=== PATIENT | male | born 1960 | race Caucasian/White ===

== ENCOUNTER 2021-07-02 10:52 | Emergency (ER) | payer OTHER, SELFPAY ==
--- NOTE | ~2021-07-02 | CT_ITS ---
EXAMINATION: CT ABDOMEN AND PELVIS WITHOUT CONTRAST CLINICAL INFORMATION: Left lower quadrant pain. No bowel movements for 4 days. COMPARISON: None TECHNIQUE: Multidetector volumetric imaging was performed from the superior aspect of the liver through the pubic symphysis. Sagittal and coronal reformatted images were obtained on the technologist's workstation. This CT examination was performed using dose optimization techniques as appropriate, variously including the following: *Automated exposure control *Adjustment of mA and/or kV according to patient size (this includes techniques or standardized protocols for targeted exams where dose is matched to indication/reason for exam; i.e. extremities or head) *Use of iterative reconstruction technique DLP: 467 mGy-cm FINDINGS: LUNG BASES: Lung bases are clear. The heart size is normal. LIVER, GALLBLADDER, AND BILIARY TREE: The liver is normal in size, shape, and attenuation. No focal hepatic lesion or biliary ductal dilatation is present. The gallbladder is unremarkable with no evidence of radiopaque gallstones, gallbladder wall thickening, or obvious pericholecystic inflammatory changes. PANCREAS: The head and the body the pancreas is homogeneous in echotexture. The tail of the pancreas is not visualized and likely hypoplastic. SPLEEN: Unremarkable. ADRENAL GLANDS: Unremarkable. KIDNEYS AND URETERS: The kidneys are normal in size, shape, and attenuation. There is 7 mm radiopaque calcification or calculi in the midpole cortex left kidney. No additional calcifications seen. There is no hydronephrosis. BLADDER: Unremarkable. GASTROINTESTINAL TRACT: There is scattered stool and diverticuli seen throughout the entire colon without distention. There is diffuse mural thickening involving sigmoid colon with pericolic fat stranding suggestive of diverticulitis. The small bowel loops are normal caliber. Appendix is not seen well. No free air or free fluid seen. ABDOMINAL WALL: No significant hernia is appreciated. LYMPH NODES: Normal. VASCULAR: Unremarkable. PELVIC VISCERA: There is no free fluid seen. OSSEOUS STRUCTURES: There are degenerative disc changes L2-sacrum L1-L2, T12-L1 disc levels with mild ventral spondylosis. No visible acute fracture or lytic process seen. CT/CT abdomen pelvis wo con IMPRESSION: Scattered colonic diverticulosis with sigmoid diverticulitis. There is no free air, drainable abscess or proximal bowel obstruction. Nonspecific calcification left kidney cortex.
[2021-07-02 10:59] VITALS: BP 142/73; PULSE 84; RESP 16; O2SAT 97; BMI 24.3
--- NOTE | 2021-07-02 11:04 | ED.ABDPAIN ---
HPI - Abdominal Pain General Chief Complaint: Abdominal Pain Stated Complaint: abd pain, constipation Time Seen by Provider: 07/02/21 11:04 Source: patient Mode of arrival: ambulatory Limitations: no limitations History of Present Illness HPI narrative: 6-year-old male on no daily medications presents for 4 days of constipation in left lower quadrant pain. Patient reports he has left lower quadrant pain that radiates to his back, the pain is crampy in nature, with intermittent stabbing. The pain is intermittent, and is now a 6/10. Last night the pain was 10/10. He was passing gas last night, and had a small amount of diarrhea. Patient has not had a regular bowel movement since 4 days ago, which she states was normal, no dark, tarry, or bloody stool. Patient does not have a history of constipation, he normally passes stool every day. Patient felt he might have had a fever last night, he is nauseous. No vomiting, no dysuria, no urinary retention. Family history of IBS. Patient stated he has had a recent colonoscopy in the last 2 years, to rule out Crohn's disease. No Crohn's was found. Patient had COVID in November, is not vaccinated for COVID. Patient's chart states he is allergic to iodinated contrast, the patient thinks he is allergic to gadolinium when he had an MR of his brain years ago. environmental science technician investigated, inside that patient had no imagingwith contrast at this hospital. MD elicited complaint: abdominal pain Pertinent past history: other (unknown) Onset (ago): day(s) (4) Pain Consistency: intermittent Location: LLQ Severity: severe (10) Quality: cramping and sharp Radiation: back Migration to: no migration Exacerbating factors: nothing Relieving factors: nothing Associated symptoms: nausea and constipation Related Data Previous Rx's Medication Instructions Recorded ciprofloxacin HCl 500 mg tablet 500 mg PO BID 10 Days #20 tab 07/02/21 metronidazole 500 mg tablet 500 mg PO TID 10 Days #30 tab 07/02/21 Allergies Allergy/AdvReac Type Severity Reaction Status Date / Time Iodinated Contrast Media Allergy Severe ANAPHYLAXIS Unverified 07/29/20 15:35 [IV DYE, IODINE CONTAINING] contrast dye Allergy Unknown throat Uncoded 07/11/18 00:00 swelling Review of Systems Constitutional: Denies body ache(s), Reports chills, Denies fatigue, Reports fever(s), Denies headache(s), Denies malaise and Denies weakness Eyes: Denies blurry vision and Denies diplopia Denies vertigo, Denies dizziness, Denies otalgia, Denies headache(s), Denies mouth pain, Denies post nasal drip, Denies sinus pain, Denies sinus pressure, Denies sore throat and Denies throat swelling Cardiovascular: Denies chest pain, Denies syncope, Denies leg edema, Denies lightheadedness, Denies Loss of Consciousness, Denies palpitations and Denies dyspnea Respiratory: Denies chest congestion, Denies cough and Denies dyspnea Gastrointestinal: Reports abdominal pain, Denies hematochezia, Denies tenesmus, Reports constipation, Denies diarrhea, Denies loose stools, Reports nausea and Denies vomiting Genitourinary: Denies dysuria, Denies testicular pain, Denies urinary frequency, Denies urinary hesitancy and Denies urinary incontinence Musculoskeletal: Reports back pain Skin/Breast: Denies erythema and Denies rash Denies confusion, Denies vertigo, Denies dizziness, Denies syncope, Denies headache(s) and Denies weakness Psychiatric: Denies anxiety, Denies confusion and Denies depression Endocrine: Denies fatigue and Denies palpitations Allergic/Immunologic: Denies throat swelling Physical Exam Vital Signs: Vital Signs: Last Vital Signs Temp 98.7 F 07/02/21 11:52 Pulse 74 07/02/21 11:51 Resp 18 07/02/21 11:51 BP 142/73 H 07/02/21 10:59 Pulse Ox 97 07/02/21 10:59 Body Mass Index 24.3 Const: General: healthy appearing, no acute distress, alert and awake; No confusion Nutritional Appearance: well nourished Orientation/consciousness: patient oriented x3 and No confusion Limitations: no limitations HENMT: Head: Yes normal to inspection, Yes normocephalic and Yes atraumatic Ears: hearing grossly normal bilaterally, external ears normal, TM's normal bilaterally and EAC's normal General nose exam: Normal external nose present Face and sinus: Yes normal facial exam and Yes sinuses nontender Mouth: Normal oral and palatal mucosa present Throat: Yes posterior oropharynx normal Eyes: Conjunctivae: conjunctivae normal Pupils: Equal, round and reactive pupils present EOM: EOMs intact bilaterally Neck: Neck: Yes full ROM, Yes no lymphadenopathy and Yes supple Resp: Effort & Inspection: normal respiratory effort and able to speak in complete sentences Auscultation: clear to auscultation bilaterally, no crackles, no rales, no rhonchi and no wheezes Cardio: Rate: regular rate Rhythm: regular rhythm Heart sounds: S1 normal heart sound present and S2 normal heart sound present GI: Inspection: Yes normal to inspection Palpation (GI): Soft to palpation, Tenderness to palpation present (GI) in the LLQ and in the RUQ, Guarding due to palpation present (GI) in the LLQ and not rigid Percussion: Yes normal to percussion Auscultation: normal bowel sounds Rectal Exam - Male: Yes visual inspection normal, Yes normal sphincter tone, Yes heme negative stool, No External hemorrhoid(s) present, No fecal impaction and No Anal fissure(s) present : Penis: normal penis, circumcised, not edematous, not erythematous, no masses, no nodules, no papules and no pustules Meatus: meatus normal Scrotum: scrotum normal, not edematous and not erythematous Testes: Testes normal and testicular lie normal Skin: General skin exam: no rashes or lesions noted Neuro: General: patient oriented x3 and No confusion Cranial nerves: Yes Equal, round and reactive pupils present Extrem: General: Yes normal to inspection and Yes full ROM Psych: Appearance: grossly normal Affect: normal affect Attitude: cooperative Thought process: Normal thought process present Course Course Course Narrative: 6-year-old male with 4 days of lower abdominal pain left worse than right, with no bowel movement in last 4 days. On exam, patient has good bowel sounds, abdomen is soft, patient is tender in his left lower quadrant and right lower quadrant, with guarding in the left lower quadrant. Rectal exam is normal, no stool impaction fell, fecal occult blood test is negative. Patient has a mildly elevated white blood cell count 11.8, chemistries are otherwise unremarkable, lipase is normal at 16, lactate 0.9. Patient has +1 blood in his urine. COVID negative. CT shows Scattered colonic diverticulosis with sigmoid diverticulitis. There is no free air, drainable abscess or proximal bowel obstruction. Will treat with Cipro and Flagyl, have patient follow-up with PCP. Gave return precautions of fever, is severe worsening abdominal pain, nausea vomiting. Patient verbalized agreement understanding of the plan MDM - Abdominal Pain Lab Data Result diagrams: 07/02/21 11:47 07/02/21 11:47 Labs: Lab Results 07/02/21 07/02/21 07/02/21 Range/Units 11:47 11:47 11:47 WBC 11.8 H (4.8-10.8) X10*3/uL RBC 4.92 (4.60-5.80) X10*6/uL Hgb 15.1 (14.0-18.0) g/dl Hct 43.4 (42-52) % MCV 88.2 (80-98) fL MCH 30.7 (27.0-33.0) pg MCHC 34.8 (31.0-36.0) g/dl RDW 12.0 (11.0-16.0) % Plt Count 256 (160-400) X10*3/uL MPV 10.4 (9.4-12.4) fL Immature Gran % (Auto) 0.3 (0.0-0.4) % Neut % (Auto) 76.8 H (45-73) % Lymph % (Auto) 11.7 L (20-40) % [place] % (Auto) 10.0 (2-11) % Eos % (Auto) 0.9 (0-4) % Baso % (Auto) 0.3 (0-2) % Lymph # (Auto) 1.4 (1.2-4.9) X10*3/uL [place] # (Auto) 1.2 (0.1-1.2) X10*3/uL Eos # (Auto) 0.1 (0.0-0.4) X10*3/uL Baso # (Auto) 0.0 (0.0-0.2) X10*3/uL Abs Immat Gran (auto) 0.04 H (0.00-0.03) X10*3/uL Absolute Neuts (auto) 9.0 H (2.0-8.3) X10*3/uL Absolute Nucleated RBC 0.000 (0.0-0.012) X10*3/uL Nucleated RBC % (auto) 0.0 (0.0-0.2) /100WBC Smear Tech's Comments VERIFIED Sodium 139 (135-145) mmol/L Potassium 4.6 (3.3-5.1) mmol/L Chloride 100 (96-108) mmol/L Carbon Dioxide 26 (22-29) mmol/L Anion Gap 18 (12-20) BUN 12 (9-16) mg/dL Creatinine 0.87 (0.5-1.4) mg/dL Estim Creat Clear Calc 90.2 Estimated GFR > 60 Random Glucose 93 (60-115) mg/dL Lactic Acid (0.5-2.0) mmol/L Calcium 9.5 (8.4-10.2) mg/dL Total Bilirubin 1.1 H (0.0-1.0) mg/dL AST 30 (5-37) U/L ALT 29 (0-40) U/L Alkaline Phosphatase 103 (39-117) U/L Total Protein 7.7 (6.5-8.0) g/dL Albumin 4.5 (3.5-5.0) g/dL Lipase 16 (8-78) U/L Urine Color Urine Appearance Urine pH (5.0-8.0) Ur Specific [place] (1.005-1.025) Urine Protein (NEG-TRACE) MG/DL Urine Glucose (UA) (NEG) MG/DL Urine Ketones (NEG) MG/DL Urine Blood (NEG) Urine Nitrite (NEG) Ur Leukocyte Esterase (NEG) Urine RBC (0) /HPF Urine WBC (0-4) /HPF Ur Squamous Epith Cells /LPF Urine Bacteria /LPF Stool Occult Blood (NEGATIVE) COVID-19 (STEPHANIE) Negative (Negative) COVID-19 Clin Com See Note 07/02/21 07/02/21 07/02/21 Range/Units 11:47 11:47 12:07 WBC (4.8-10.8) X10*3/uL RBC (4.60-5.80) X10*6/uL Hgb (14.0-18.0) g/dl Hct (42-52) % MCV (80-98) fL MCH (27.0-33.0) pg MCHC (31.0-36.0) g/dl RDW (11.0-16.0) % Plt Count (160-400) X10*3/uL MPV (9.4-12.4) fL Immature Gran % (Auto) (0.0-0.4) % Neut % (Auto) (45-73) % Lymph % (Auto) (20-40) % [place] % (Auto) (2-11) % Eos % (Auto) (0-4) % Baso % (Auto) (0-2) % Lymph # (Auto) (1.2-4.9) X10*3/uL [place] # (Auto) (0.1-1.2) X10*3/uL Eos # (Auto) (0.0-0.4) X10*3/uL Baso # (Auto) (0.0-0.2) X10*3/uL Abs Immat Gran (auto) (0.00-0.03) X10*3/uL Absolute Neuts (auto) (2.0-8.3) X10*3/uL Absolute Nucleated RBC (0.0-0.012) X10*3/uL Nucleated RBC % (auto) (0.0-0.2) /100WBC Smear Tech's Comments Sodium (135-145) mmol/L Potassium (3.3-5.1) mmol/L Chloride (96-108) mmol/L Carbon Dioxide (22-29) mmol/L Anion Gap (12-20) BUN (9-16) mg/dL Creatinine (0.5-1.4) mg/dL Estim Creat Clear Calc Estimated GFR Random Glucose (60-115) mg/dL Lactic Acid 0.9 (0.5-2.0) mmol/L Calcium (8.4-10.2) mg/dL Total Bilirubin (0.0-1.0) mg/dL AST (5-37) U/L ALT (0-40) U/L Alkaline Phosphatase (39-117) U/L Total Protein (6.5-8.0) g/dL Albumin (3.5-5.0) g/dL Lipase (8-78) U/L Urine Color YELLOW Urine Appearance HAZY Urine pH 6.0 (5.0-8.0) Ur Specific [place] 1.020 (1.005-1.025) Urine Protein TRACE (NEG-TRACE) MG/DL Urine Glucose (UA) NEG (NEG) MG/DL Urine Ketones 15 (NEG) MG/DL Urine Blood 1+ H (NEG) Urine Nitrite NEG (NEG) Ur Leukocyte Esterase NEG (NEG) Urine RBC 1-4 (0) /HPF Urine WBC 0-2 (0-4) /HPF Ur Squamous Epith Cells NONE /LPF Urine Bacteria NONE /LPF Stool Occult Blood NEGATIVE (NEGATIVE) COVID-19 (STEPHANIE) (Negative) COVID-19 Clin Com Discharge Plan Discharge Clinical Impression: Diverticulitis, Microhematuria Patient Disposition: Home, Self-Care Instructions: Diverticulitis (ED), Diverticulitis Diet (ED) Additional Instructions: Please fill the 2 antibiotic prescriptions I prescribed from your pharmacy. Please call your primary care provider on Sunday for follow-up appointment. You may take [id number] stool softener. Please take 1000 mg of Tylenol every 8 hours for the next 3 days. Please do not take more than 3000 mg of Tylenol in 24 hours. If you have fever, worsening abdominal pain, nausea or vomiting, please return to the emergency room. You have a trace amount of blood in your urine, this can be followed up with your PCP and is not an emergency. Prescriptions: New ciprofloxacin HCl 500 mg tablet 500 mg PO BID 10 Days Qty: 20 RF: 0 metronidazole 500 mg tablet 500 mg PO TID 10 Days Qty: 30 RF: 0 PMFSH Past Medical History PMFSH Narrative: The left inguinal surgery with mesh Social History Social History Advance Directives: No Advance Directives Information Provided: No
[2021-07-02] MEDS: 0.9 % Sodium Chloride 1,000 ML 999 ML IV (11:48)
[2021-07-02] MEDS: ondansetron HCL 4 MG/2 ML VIAL IVPUSH (11:49)
[2021-07-02] MEDS: Morphine Sulfate 4 MG/ML CARTRIDGE IVPUSH (11:49)
[2021-07-02 11:51] VITALS: PULSE 74; RESP 18
[2021-07-02 11:52] VITALS: TEMP 37.1
[2021-07-02 12:11] LABS: Hemoglobin 15.1 g/dl (14.0-18.0); MANUAL DIFF FLAG SCAN; Mean Corpuscular Volume 88.2 fL (80-98); Mean Platelet Volume 10.4 fL (9.4-12.4); OBS Int Ctl Valid YES; OBS1 NEGATIVE (NEGATIVE); PLT CLUMP 1; SCAN SMEAR FLAG 1
[2021-07-02 12:13] LABS: Basophils Percent Auto 0.3 % (0-2); Eosinophils Absolute Auto 0.1 X10*3/uL (0.0-0.4); Eosinophils Percent Auto 0.9 % (0-4); Hematocrit 43.4 % (42-52); Imm Gran Abs Auto 0.04 X10*3/uL (0.00-0.03); Imm Gran Pct Auto 0.3 % (0.0-0.4); Lymphocytes Absolute Auto 1.4 X10*3/uL (1.2-4.9); Lymphocytes Percent Auto 11.7 % (20-40); Mean Corpuscular HGB Conc 34.8 g/dl (31.0-36.0); Mean Corpuscular Hemoglobin 30.7 pg (27.0-33.0); Monocytes Absolute Auto 1.2 X10*3/uL (0.1-1.2); Neutrophils Percent Auto 76.8 % (45-73); Red Blood Count 4.92 X10*6/uL (4.60-5.80); White Blood Count 11.8 X10*3/uL (4.8-10.8)
[2021-07-02 12:15] LABS: Appearance Urine HAZY; Color Urine YELLOW; Glucose Urine UA NEG (NEG); Leukocyte Esterase Urine NEG (NEG); Nitrite Urine NEG (NEG); Urine Blood 1+ (NEG); Urine Ketones 15 MG/DL (NEG); Urine Protein TRACE MG/DL (NEG-TRACE)
[2021-07-02 12:23] LABS: WBC Urine 0-2 /HPF (0-4)
[2021-07-02 12:34] LABS: Lactic Acid 0.9 mmol/L (0.5-2.0)
[2021-07-02 12:35] LABS: COVID-19 Test Negative (Negative)
[2021-07-02 12:45] LABS: Platelet Count 256 X10*3/uL (160-400)
[2021-07-02 12:46] LABS: SLIDE REVIEW VERIFIED
[2021-07-02 12:54] LABS: Alanine Aminotransferase 29 U/L (0-40); Albumin Level 4.5 g/dL (3.5-5.0); Alkaline Phosphatase 103 U/L (39-117); Anion Gap 18 (12-20); Aspartate Amino Transferase 30 U/L (5-37); Bilirubin Total 1.1 mg/dL (0.0-1.0); Blood Urea Nitrogen 12 mg/dL (9-16); Calcium 9.5 mg/dL (8.4-10.2); Carbon Dioxide 26 mmol/L (22-29); Chloride 100 mmol/L (96-108); Creatinine Clr Calc Pharmacy 90.2; Estimated Glomerular Filt Rate > 60; Glucose Random 93 mg/dL (60-115); Lipase 16 U/L (8-78); Potassium 4.6 mmol/L (3.3-5.1); Sodium 139 mmol/L (135-145); Total Protein 7.7 g/dL (6.5-8.0)
[2021-07-02 14:00] VITALS: BP 110/59; PULSE 75; RESP 18; O2SAT 96
== END 2021-07-02 14:19 | disposition home or self-care (01) ==
PROVIDERS: Physician Assistant; Emergency Provider Internal Medicine; PCP Hospitalist
DX: K57.32 Diverticulitis of large intestine without perforation or abscess without bleeding (principal); R31.29 Other microscopic hematuria; Z20.822 Contact with and (suspected) exposure to COVID-19; R10.9 Unspecified abdominal pain
CPT/HCPCS: 36415; 74176; 80053; 81001; 82272; 83605; 83690; 85025; 87635; 96361; 96374; 96375; 99284; J2270; J2405

== ENCOUNTER 2023-12-11 05:46 | Inpatient (IN) | payer OTHER, SELFPAY ==
--- NOTE | ~2023-12-11 | CT_ITS ---
EXAMINATION: CT ABDOMEN AND PELVIS WITHOUT CONTRAST CLINICAL INFORMATION: Left lower quadrant pain. History of diverticulitis. COMPARISON: CT abdomen pelvis July 02, 2021 TECHNIQUE: Multidetector volumetric imaging was performed from the superior aspect of the liver through the pubic symphysis. Sagittal and coronal reformatted images were obtained on the technologist's workstation. This CT examination was performed using dose optimization techniques as appropriate, variously including the following: *Automated exposure control *Adjustment of mA and/or kV according to patient size (this includes techniques or standardized protocols for targeted exams where dose is matched to indication/reason for exam; i.e. extremities or head) *Use of iterative reconstruction technique DLP: 455 mGy-cm FINDINGS: Visualized lung bases are well aerated. The liver is normal in size. The gallbladder is normal in appearance. The pancreas, spleen and adrenal glands are unremarkable. Symmetrically sized kidneys. There is no hydronephrosis of either kidney. Linear calcifications are noted within the midpole the left kidney, possibly layering milk of calcium. Normal caliber loops of small and large bowel. Mild to moderate colonic stool burden. Mild to moderate colonic diverticulosis. There is prominent circumferential mucosal thickening involving the majority of the sigmoid colon with adjacent pericolonic stranding. No well-defined fluid collection identified. Normal caliber abdominal aorta demonstrating mild atherosclerotic disease. No gross retroperitoneal lymphadenopathy. The bladder is unremarkable. The prostate gland is at the upper limits of normal in size. No inguinal lymphadenopathy. Tiny fat-containing right inguinal hernia. Scoliotic and degenerative changes of the spine. CT/CT abdomen pelvis wo IV con IMPRESSION: 1. Prominent circumferential mucosal thickening involving the majority of the sigmoid colon with adjacent pericolonic stranding. Findings are most suggestive of acute diverticulitis. No well-defined fluid collection identified. Follow-up imaging recommended status post treatment to ensure resolution. 2. Linear calcifications are noted within the midpole of the left kidney, possibly layering milk of calcium. Fleischner guidelines were followed.
[2023-12-11 05:57] VITALS: BP 126/66; PULSE 83; RESP 18; TEMP 36.6; O2SAT 99
[2023-12-11 06:12] VITALS: BMI 24.4
[2023-12-11 06:16] LABS: MANUAL DIFF FLAG NO
[2023-12-11 06:17] LABS: Basophils Percent Auto 0.2 % (0-2); Eosinophils Absolute Auto 0.1 X10*3/uL (0.0-0.4); Eosinophils Percent Auto 0.5 % (0-4); Hematocrit 39.3 % (42.0-52.0); Imm Gran Abs Auto 0.03 X10*3/uL (0.00-0.03); Imm Gran Pct Auto 0.3 % (0.0-0.4); Lymphocytes Absolute Auto 1.3 X10*3/uL (1.2-4.9); Lymphocytes Percent Auto 12.1 % (20-40); Mean Corpuscular HGB Conc 35.6 g/dl (31.0-36.0); Mean Corpuscular Hemoglobin 30.4 pg (27.0-33.0); Mean Corpuscular Volume 85.2 fL (80.0-98.0); Mean Platelet Volume 9.1 fL (9.4-12.4); Monocytes Percent Auto 9.1 % (2-11); Neutrophils Absolute Auto 8.5 x10*3/uL (2.0-8.3); Neutrophils Percent Auto 77.8 % (45-73); Platelet Count 320 X10*3/uL (160-400); Red Blood Count 4.61 X10*6/uL (4.60-5.80); Red Cell Distribution Width 11.5 % (11.0-16.0); White Blood Count 10.9 X10*3/uL (4.8-10.8)
[2023-12-11 06:35] LABS: Alanine Aminotransferase 16 U/L (0-40); Albumin Level 3.8 g/dL (3.5-5.0); Alkaline Phosphatase 82 U/L (39-117); Anion Gap 12 (12-20); Aspartate Amino Transferase 18 U/L (5-37); Bilirubin Total 0.7 mg/dL (0.0-1.0); Blood Urea Nitrogen 8 mg/dL (9-16); Calcium 9.1 mg/dL (8.4-10.2); Carbon Dioxide 25 mmol/L (22-29); Chloride 103 mmol/L (96-108); Creatinine Clr Calc Pharmacy 98.1; Estimated Glomerular Filt Rate > 60; Glucose Random 104 mg/dL (60-115); Potassium 3.7 mmol/L (3.3-5.1); Sodium 136 mmol/L (135-145); Total Protein 6.9 g/dL (6.5-8.0)
--- NOTE | 2023-12-11 06:44 | ED.ABDPAIN ---
HPI - Abdominal Pain General Chief Complaint: Abdominal Pain Stated Complaint: abd pain Time Seen by Provider: 12/11/23 06:44 Source: patient Mode of arrival: ambulatory Limitations: no limitations History of Present Illness HPI narrative: 63 year old male with pmhx significant for diverticulitis presents to the ED this morning for evaluation of abdominal pain x5 days. Endorses intermittent left sided abdominal pain that began 5 days ago. Upon speaking with his GI doctor, Dr. Weaver, 4 days ago he was placed on cipro & flagyl for suspected diverticulitis. Patient states he began having joint pain and nausea and upon looking up the side effects of these antibiotics, decided to stop taking them yesterday. Reports following an all-liquid diet for two days. Began eating solid foods 2 days ago and immediately began having intermitent LLQ and suprapubic pain. Admits he has not passed a BM in 4 days. Passing flatus. No excessive belching. Last PO intake last night. Denies fever, chills, diarrhea, vomiting, flank pain, dysuria, hematuria. Denies recent travel. Denies history of abdominal surgeries. Admits he has required inpatient treatment of diverticulitis in the past. Related Data Home Medications Medication Instructions Recorded Confirmed multivitamin 1 tab PO DAILY 12/11/23 12/11/23 nystatin 500,000 unit tablet 1,000,000 unit PO BID 12/11/23 12/11/23 Previous Rx's Medication Instructions Recorded ciprofloxacin HCl 500 mg tablet 500 mg PO BID 7 days #14 tabs 05/12/23 metronidazole 500 mg tablet 500 mg PO TID 7 days #21 tabs 05/12/23 Allergies Allergy/AdvReac Type Severity Reaction Status Date / Time Iodinated Contrast Media Allergy Severe ANAPHYLAXIS Verified 12/11/23 06:11 [IV DYE, IODINE CONTAINING] contrast dye Allergy Unknown throat Uncoded 12/11/23 06:11 swelling Review of Systems Review of Systems Constitutional: No fever, chills, fatigue, night sweats, weight changes ENT/Mouth: No ear pain, hearing loss, nasal congestion, sinus pain, rhinorrhea, sore throat Eyes: No eye pain, swelling, redness, vision changes, discharge Cardio: No chest pain, palpitations, JENSEN, orthopnea, peripheral edema Pulm: No SOB, cough, sputum, wheezing, dyspnea, hemoptysis GI: +nausea, +abdominal pain, + constipation, No vomiting, hematemesis, diarrhea, hematochezia, melena : No irregular bleeding, dysuria, frequency, urgency, hesitancy, hematuria, flank pain, urinary flow changes, urinary incontinence or retention MSK: No back pain, neck pain, joint pain, myalgias Skin: No lesions, rashes Neuro: No weakness, numbness, paresthesias, LOC, dizziness, headache All other systems reviewed and are negative. [facility] Past Medical History Attestation statement: The following information was validated with the patient. Source: old records reviewed and nursing notes reviewed Medical History (Updated 12/11/23 @ 17:09 by SUSY Jensen) Diverticulitis Social History Social History Alcohol intake: current Alcohol intake frequency: holidays/special occasions only Patient Tobacco Use Status: Never used Tobacco Smoked in Last 30 Days: No Use of substances other than those prescribed or required for medical reasons: No Advance Directives: No Advance Directives Information Provided: Yes Nutrition Risks: No Nutritional Risk Physical Exam ED Vital Signs: Vital Signs - 24 hr 12/11/23 05:57 12/11/23 07:27 12/11/23 10:26 Temperature 97.9 F 97.8 F 99.6 F Pulse Rate 83 79 78 Respiratory Rate 18 16 16 Blood Pressure 126/66 122/62 133/61 Pulse Oximetry 99 97 98 Oxygen Delivery Method Room Air Room Air Room Air BMI result Body Mass Index 24.4 Vital signs stable, afebrile Const Other: Nontoxic-appearing General: cooperative, healthy appearing, comfortable, no acute distress, alert and awake Nutritional Appearance: average body habitus Orientation/consciousness: patient oriented x3 Limitations: no limitations Eyes General: appearance normal, both eyes and all related structures Conjunctivae: conjunctivae normal Sclerae: sclerae normal Neck Neck: Yes normal visual inspection and Yes no lymphadenopathy Resp Effort & Inspection: normal respiratory effort and able to speak in complete sentences Auscultation: clear to auscultation bilaterally Cardio Rate: regular rate Rhythm: regular rhythm GI Other: + no visible peristalsis. abdomen soft, nondistended, exquisitely tender to palpation of both right and left lower quadrants with guarding, no rebound tenderness. Normoactive bowel sounds x4. Negative McBurney point tenderness. Negative Rovsing sign. Negative Neumann sign. No visible peristalsis. Inspection: Yes normal to inspection Rectal Exam - Male: Yes deferred General: Yes no CVA tenderness Back/Spine/Pelvis Back: no CVA tenderness Skin General skin exam: no rashes or lesions noted Neuro General: patient oriented x3 and gait normal Course Course Course Narrative: 0846-- CBC with slight leukocytosis to 10.9, no left shift. H&H stable. Chemistry without acute electrolyte abnormality requiring intervention. Patient reports pain control with IV morphine. > awaiting inflammatory markers, lipase, Mag, UA, and CT read. 0950-- CRP elevated to 9.69. Sed rate elevated to 33. Magnesium WNL. Lipase WNL. CT abdomen/pelvis shows prominent circumferential mucosal thickening involving the majority of the sigmoid colon with adjacent pericolic stranding suggesting acute diverticulitis. > given failure of outpatient antibiotic therapy, I will start patient on IV Zosyn. He is already receiving IV fluids and will be placed on liquid only diet. Will present to hospitalist for admission to medicine for acute diverticulitis requiring IV antibiotics. > I informed patient of workup results and the need to admit for IV antibiotic therapy. He is in agreement for admission. Additionally he states that he was able to pass a bowel movement while in the ED. 1000-- hospitalist [employer], [facility] Navarrete has accepted patient for admission and will place admission orders. Medical Decision Making Medical Decision Making [facility] Narrative: 63 year old male with pmhx significant for diverticulitis presents to the ED this morning for evaluation of abdominal pain x5 days. Patient vital signs are WNL. Afebrile. He is nontoxic appearing in no acute distress. On my examination, abdomen is soft, tender to palpation of both left lower and right lower quadrants with guarding, no rebound tenderness. Normoactive bowel sounds x4. No CVAT bilaterally. No palpable inguinal hernias. Ambulating with steady gait. Clinical concern for constipation, diverticulosis, diverticulitis, electrolyte abnormality, anemia. Unlikely hernia, small-bowel obstruction, ischemic bowel, acute abdomen. Plan for labs, UA, imaging, IV fluids and re-evaluation. Differential Diagnosis Differential Diagnoses: The differential diagnosis associated with the presentation includes As above. Admission/Observation Consideration of admission/observation: Escalation of care including admission/observation considered Patient with acute diverticulitis failing outpatient oral therapy will be admitted to medicine for IV antibiotics and IVF. Consult Healthcare Provider Management of the patient was discussed with: Hospitalist (H[facility] Navarrete who will place admission orders) Lab Data MDM Lab Attestation statement: I reviewed the patient's lab results. As above. 12/11/23 06:12 12/11/23 06:12 Labs: Lab Results 12/11/23 12/11/23 Range/Units 06:12 09:15 WBC 10.9 H (4.8-10.8) X10*3/uL RBC 4.61 (4.60-5.80) X10*6/uL Hgb 14.0 (14.0-18.0) g/dl Hct 39.3 L (42.0-52.0) % MCV 85.2 (80.0-98.0) fL MCH 30.4 (27.0-33.0) pg MCHC 35.6 (31.0-36.0) g/dl RDW 11.5 (11.0-16.0) % Plt Count 320 (160-400) X10*3/uL MPV 9.1 L (9.4-12.4) fL Immature Gran % (Auto) 0.3 (0.0-0.4) % Neut % (Auto) 77.8 H (45-73) % Lymph % (Auto) 12.1 L (20-40) % [place] % (Auto) 9.1 (2-11) % Eos % (Auto) 0.5 (0-4) % Baso % (Auto) 0.2 (0-2) % Lymph # (Auto) 1.3 (1.2-4.9) X10*3/uL [place] # (Auto) 1.0 (0.1-1.2) X10*3/uL Eos # (Auto) 0.1 (0.0-0.4) X10*3/uL Baso # (Auto) 0.0 (0.0-0.2) X10*3/uL Abs Immat Gran (auto) 0.03 (0.00-0.03) X10*3/uL Absolute Neuts (auto) 8.5 H (2.0-8.3) x10*3/uL Absolute Nucleated RBC 0.000 (0.0-0.012) X10*3/uL Nucleated RBC % (auto) 0.0 (0.0-0.2) /100WBC ESR 33 H (0-15) MM/HR Sodium 136 (135-145) mmol/L Potassium 3.7 (3.3-5.1) mmol/L Chloride 103 (96-108) mmol/L Carbon Dioxide 25 (22-29) mmol/L Anion Gap 12 (12-20) BUN 8 L (9-16) mg/dL Creatinine 0.77 (0.5-1.4) mg/dL Estim Creat Clear Calc 98.1 Estimated GFR > 60 Random Glucose 104 (60-115) mg/dL Calcium 9.1 (8.4-10.2) mg/dL Magnesium 1.8 (1.6-2.6) mg/dL Total Bilirubin 0.7 (0.0-1.0) mg/dL AST 18 (5-37) U/L ALT 16 (0-40) U/L Alkaline Phosphatase 82 (39-117) U/L C-Reactive Protein 9.69 H (< or = 0.50) mg/dL Total Protein 6.9 (6.5-8.0) g/dL Albumin 3.8 (3.5-5.0) g/dL Lipase 12 (8-78) U/L Urine Color Yellow Urine Appearance Clear Urine pH 6.5 (5.0-9.0) Ur Specific [place] 1.010 (1.005-1.025) Urine Protein Negative (Neg-Trace) mg/dL Urine Glucose (UA) Negative (Negative) mg/dL Urine Ketones 40 (Negative) mg/dL Urine Blood Trace (Negative) Urine Nitrite Negative (Negative) Ur Leukocyte Esterase Negative (Negative) Urine RBC 0-2 (0-2) /HPF Urine WBC 0-5 (0-5) /HPF Ur Squamous Epith Cells 0-2 (0-2) /HPF Urine Bacteria None Seen (None Seen) Hyaline Casts 0-2 (0-2) /LPF Independent Interpretation I performed an independent interpretation of an: CT Scan Interpretation: I personally reviewed patient's CT abdomen/pelvis and agree with radiologist's interpretation. Radiology Impression Discussion of test interpretation with radiology: I have reviewed the radiologist's reading. Radiologist Impression: CT abdomen pelvis wo IV con IMPRESSION: 1. Prominent circumferential mucosal thickening involving the majority of the sigmoid colon with adjacent pericolonic stranding. Findings are most suggestive of acute diverticulitis. No well-defined fluid collection identified. Follow-up imaging recommended status post treatment to ensure resolution. 2. Linear calcifications are noted within the midpole of the left kidney, possibly layering milk of calcium. Fleischner guidelines were followed. External Record Review External record reviewed: Inpatient record, Office record, Outpatient record, Prior outpatient labs, Prior outpatient radiology, Primary care record and Outside ED record Prescription Management I considered prescription management with: Pain Medication and Antibiotic Chronic Conditions Patient?s care impacted by: Other (Diverticulitis, constipation) Social Determinants Patient?s care significantly limited by Social Determinants of Health including: Other Social Determinant of Health Medications Administered Generic Name Dose Route Start Last Admin Trade Name Freq PRN Reason Stop Dose Admin Heparin Sodium (Porcine) 5,000 unit 12/11/23 11:45 12/11/23 12:33 Heparin Sodium,Porcine 5,000 Unit/Ml Vial SUBCUT 5,000 unit Q12H BELÉN Administration Piperacillin Sod/Tazobactam 100 mls @ 200 mls/hr 12/11/23 16:30 12/11/23 16:50 Sod 4.5 gm/ Sodium Chloride IV 200 mls/hr Q6H BELÉN Administration Sodium Chloride 3 ml 12/11/23 16:00 12/11/23 16:50 0.9 % Sodium Chloride Flush 3 Ml Syringe IVFLUSH 3 ml QSHIFT BELÉN Administration Discontinued Medications Generic Name Dose Route Start Last Admin Trade Name Freq PRN Reason Stop Dose Admin Sodium Chloride 1,000 mls @ 999 mls/hr 12/11/23 07:15 12/11/23 08:30 Ns IV 12/11/23 08:15 Infused .Q1H1M BELÉN Infusion Piperacillin Sod/Tazobactam 50 mls @ 100 mls/hr 12/11/23 10:06 12/11/23 10:56 Sod 3.375 gm/ Sodium Chloride IV 12/11/23 10:35 Infused ONCE ONE Infusion Sodium Chloride 1,000 mls @ 999 mls/hr 12/11/23 10:15 12/11/23 11:31 Ns IV 12/11/23 11:15 Infused .Q1H1M BELÉN Infusion Morphine Sulfate 4 mg 12/11/23 07:29 12/11/23 07:36 Morphine Sulfate 4 Mg/Ml Cartridge IVPUSH 12/11/23 07:30 4 mg ONCE ONE Administration Protocol Morphine Sulfate 4 mg 12/11/23 10:06 12/11/23 10:26 Morphine Sulfate 4 Mg/Ml Cartridge IVPUSH 12/11/23 10:07 4 mg ONCE ONE Administration Protocol Ondansetron HCl 4 mg 12/11/23 10:06 12/11/23 10:25 Ondansetron Hcl 4 Mg/2 Ml Vial IVPUSH 12/11/23 10:07 4 mg ONCE ONE Administration Critical Care Time Critical Care Time Critical Care Time: Yes Total Critical Care Time: 60 Attestation: Critical care time in the amount of 60 minutes has been provided to the patient in terms of direct patient care, frequent reevaluation on IV morphine, review and interpretation of medical data and results, and management of potentially life-threatening conditions. This is all outside of any medical procedures. Discharge Plan Discharge Clinical Impression: Acute diverticulitis, Constipation, Failure of outpatient treatment Patient Disposition: Admitted As Inpatient
[2023-12-11 07:27] VITALS: BP 122/62; PULSE 79; RESP 16; TEMP 36.6; O2SAT 97
[2023-12-11] MEDS: 0.9 % Sodium Chloride 1,000 ML 999 ML IV ×2 (07:27→10:25)
--- NOTE | 2023-12-11 07:29 | PC.NURSE ---
a&ox4. vss and up to date. pt presents to the ED w/ generalized abd pain/nausea/diarrhea/chills since . denies recent fevers. currently afebrile. abd tender to the touch. 20gIV placed in the left forearm. IVF administered per provider order. pt c/o 07/22 pain - provider aware. pt aware of plan of care in regards to Ct. no sob/wob noted. respirations even and unlabored. call philippe placed within reach.
[2023-12-11] MEDS: Morphine Sulfate 4 MG/ML CARTRIDGE IVPUSH ×2 (07:36→10:26)
--- NOTE | 2023-12-11 07:37 | PC.NURSE ---
medication administered per provider order. will reassess.
--- NOTE | 2023-12-11 08:00 | PC.NURSE ---
pt to CT at this time.
--- NOTE | 2023-12-11 08:31 | PC.NURSE ---
pt returned from CT. pt still c/o 07/22 abd pain despite medication administration at this time. pt waiting for CT results at this time. urine still needed. pt aware. call philippe placed within reach.
--- NOTE | 2023-12-11 09:15 | PC.NURSE ---
urine obtained/sent to lab.
[2023-12-11 09:22] LABS: Appearance Urine Clear; Color Urine Yellow; Glucose Urine UA Negative (Negative); Leukocyte Esterase Urine Negative (Negative); Nitrite Urine Negative (Negative); PH 6.5 (5.0-9.0); UMIC TRIGGER UACC YES; Urine Blood Trace (Negative); Urine Ketones 40 mg/dL (Negative); Urine Protein Negative (Neg-Trace)
[2023-12-11 09:26] LABS: Bacteria Urine None Seen (None Seen); Hyaline Casts Urine 0-2 /LPF (0-2); RBC Urine 0-2 /HPF (0-2); Squamous Epithelial Cell Urine 0-2 /HPF (0-2); WBC Urine 0-5 /HPF (0-5)
[2023-12-11 09:45] LABS: C Reactive Protein 9.69 mg/dL (< or = 0.50); Lipase 12 U/L (8-78); Magnesium 1.8 mg/dL (1.6-2.6)
[2023-12-11 10:09] LABS: Erythrocyte Sedimentation Rate 33 MM/HR (0-15)
[2023-12-11] MEDS: ondansetron HCL 4 MG/2 ML VIAL IVPUSH (10:25)
[2023-12-11 10:26] VITALS: BP 133/61; PULSE 78; RESP 16; TEMP 37.6; O2SAT 98
[2023-12-11] MEDS: Piperacillin Sodium/Tazobactam 3.375 GM in 0.9 % Sodium Chloride 50 ML IV (10:26)
--- NOTE | 2023-12-11 10:33 | PC.NURSE ---
pt aware of CT results at this time. vss and up to date. medication administered per provider order. still verbalizing pain level is a 9/10 at this time. will reassess post medication administration. respirations remain even and unlabored. call philippe placed within reach.
--- NOTE | 2023-12-11 10:50 | PHA.MEDREC ---
Pharmacy Consult ? Medication Reconciliation Pharmacy has completed the medication reconciliation. Spoke with patient in the ED who knew all medications
--- NOTE | 2023-12-11 11:32 | PC.NURSE ---
pt speaking w/ admitting provider at this time.
--- NOTE | 2023-12-11 11:40 | P.HPHOSP_ITS ---
History of Present Illness Date of Service: 12/11/23 Attending physician on admission: Bala Manzano Chief Complaint: abd pain 63-year-old male with past medical history of diverticulitis presents to the ED earlier today for evaluation of left lower quadrant abdominal pain with radiation to the back ongoing for 5 days. There has been associated nausea, headache. Describes an 8-9/10 intermittent pain which she describes as intense cramping and sharp pain. He had been given ciprofloxacin and Flagyl by his GI doctor, Dr. Weaver, and was started on clear liquid diet. He reports 3 days ago, was starting to feel better so advanced his diet but developed significant nausea. He downgraded his diet again to clear liquids but pain has not improved so he presented to the ED. Denies any fevers, chills, vomiting, diarrhea, lightheadedness, shortness of breath, chest pain. He has been experiencing constipation and has only had very small, hard bowel movements in the last 3 days. On arrival, vital signs stable. He is afebrile. There is a mild leukocytosis of 10.9, hematology studies otherwise unremarkable. Renal function normal, electrolyte levels normal. CRP elevated at 9.69, ESR 30. Lipase 12. Urinalysis unremarkable. CT abdomen/pelvis shows prominent circumferential a causal thickening involving the majority of the sigmoid colon with adjacent pericolonic fat stranding suggestive of acute colitis. There is no well-defined fluid collection identified or perforation. In the ED, has been given 1 L IV NS, IV Zosyn, and IV morphine. Review of Systems 2 Review of Systems: General: No fevers, malaise, unintentional weight loss HEENT: No blurred vision, diplopia. No sore throat, nasal congestion, rhinorrhea, sinus pain, ear pain Cardiovascular: No chest pain, palpitations, or leg edema Respiratory: No shortness of breath, wheezing, cough GI: +abd pain, +nausea, +constipation. No vomiting, diarrhea, melena, hematochezia : No dysuria, hematuria, increased urinary frequency, decreased urinary output MSK: No myalgia, back pain Neuro: No headaches, weakness, paresthesias Skin: No rashes or lesions [facility] Medical History (Updated 12/11/23 @ 11:48 by SUSY Villarreal) Diverticulitis Social History Alcohol intake: current Alcohol intake frequency: holidays/special occasions only Smoked in Last 30 Days: No Use of substances other than those prescribed or required for medical reasons: No Advance Directives: No Advance Directives Information Provided: Yes Meds Allergies Allergy/AdvReac Type Severity Reaction Status Date / Time Iodinated Contrast Media Allergy Severe ANAPHYLAXIS Verified 12/11/23 06:11 [IV DYE, IODINE CONTAINING] contrast dye Allergy Unknown throat Uncoded 12/11/23 06:11 swelling Home Medications Medication Instructions Recorded Confirmed Last Taken Type multivitamin 1 tab PO DAILY 12/11/23 12/11/23 Unknown History nystatin 500,000 unit tablet 1,000,000 unit PO BID 12/11/23 12/11/23 Unknown History Physical Exam 2 Vital Signs and Narrative: Vital Signs: Last Vital Signs Temp 99.6 F 12/11/23 10:26 Pulse 78 12/11/23 10:26 Resp 16 12/11/23 10:26 BP 133/61 12/11/23 10:26 Pulse Ox 98 12/11/23 10:26 O2 Del Method Room Air 12/11/23 10:26 BMI result Body Mass Index 24.4 Constitutional - Awake and Alert, No apparent distress Eyes - PERRLA, EOMI Cardiovascular - S1S2, RRR, No edema Respiratory - Normal lung expansion, Normal respiratory effort, No respiratory distress, CTA bilaterally Gastrointestinal - diffuse ttp, greatest LLQ, ND; +BS; No rebound or guarding Extremities - no calf tenderness bilaterally, no swelling Skin - Warm/Dry Neurological - Alert & oriented x3 Psychological - Appropriate affect Results Labs 12/11/23 06:12 12/11/23 06:12 Labs: Laboratory Results - last 24 hr 12/11/23 12/11/23 06:12 09:15 MCV 85.2 MCH 30.4 MCHC 35.6 RDW 11.5 Plt Count 320 MPV 9.1 L Immature Gran % (Auto) 0.3 Neut % (Auto) 77.8 H Lymph % (Auto) 12.1 L [place] % (Auto) 9.1 Eos % (Auto) 0.5 Baso % (Auto) 0.2 Lymph # (Auto) 1.3 [place] # (Auto) 1.0 Eos # (Auto) 0.1 Baso # (Auto) 0.0 Abs Immat Gran (auto) 0.03 Absolute Neuts (auto) 8.5 H Absolute Nucleated RBC 0.000 Nucleated RBC % (auto) 0.0 ESR 33 H Anion Gap 12 Estim Creat Clear Calc 98.1 Estimated GFR > 60 Random Glucose 104 Calcium 9.1 Magnesium 1.8 Total Bilirubin 0.7 AST 18 ALT 16 Alkaline Phosphatase 82 C-Reactive Protein 9.69 H Total Protein 6.9 Albumin 3.8 Lipase 12 Urine Color Yellow Urine Appearance Clear Urine pH 6.5 Ur Specific [place] 1.010 Urine Protein Negative Urine Glucose (UA) Negative Urine Ketones 40 Urine Blood Trace Urine Nitrite Negative Ur Leukocyte Esterase Negative Urine RBC 0-2 Urine WBC 0-5 Ur Squamous Epith Cells 0-2 Urine Bacteria None Seen Hyaline Casts 0-2 Imaging Radiologist's Impressions: Impressions Abdomen/Pelvis CT 12/11/23 08:42 IMPRESSION: 1. Prominent circumferential mucosal thickening involving the majority of the sigmoid colon with adjacent pericolonic stranding. Findings are most suggestive of acute diverticulitis. No well-defined fluid collection identified. Follow-up imaging recommended status post treatment to ensure resolution. 2. Linear calcifications are noted within the midpole of the left kidney, possibly layering milk of calcium. Fleischner guidelines were followed. Assessment and Plan (1) Acute diverticulitis: Status: Acute Plan 63-year-old male with past medical history of diverticulitis admitted for further management of acute diverticulitis having failed outpatient oral antibiotics. # acute diverticulitis -CT abdomen past pelvis shows acute diverticulitis without any fluid collection or perforation -mild leukocytosis 10.9, CRP/ESR elevated -had been on ciprofloxacin and Flagyl x5 days with some improvement, but then worsened -IV Zosyn (initiated 12/11) -antiemetics p.r.n. -pain management using pain scale p.r.n. -clear liquid diet, advanced as tolerated -follow CBC, cultures -outpatient follow-up with Gastroenterology DVT prophylaxis-heparin Full code Patient requires inpatient stay at least 2 midnights for management of acute diverticulitis having failed oral antibiotics and inability to advance diet, will require treatment with IV antibiotics and gradual advancement of diet as tolerated Quality Stroke Does the patient have a stroke diagnosis?: No VTE Prior VTE?: No VTE Risk Level:: Medical - moderate - high VTE Device Contraindication: Treatment Not Indicated VTE Drug Contraindication: N/A - Med Ordered
[2023-12-11] MEDS: Heparin Sodium,Porcine 5,000 UNIT/ML VIAL 5000 UNIT SUBCUT ×2 (12:33→21:51)
[2023-12-11 14:55] VITALS: BP 114/62; PULSE 68; RESP 16; TEMP 36.8; O2SAT 96
[2023-12-11] MEDS: 0.9 % Sodium Chloride Flush 3 ML SYRINGE IVFLUSH ×2 (16:50→21:56)
[2023-12-11] MEDS: Piperacillin Sodium/Tazobactam 4.5 GM in 0.9 % Sodium Chloride 100 ML IV ×2 (16:50→21:51)
[2023-12-11 16:53] VITALS: BP 111/59; PULSE 68; RESP 16; TEMP 36.9; O2SAT 97
--- NOTE | 2023-12-11 16:57 | PC.NURSE ---
vss and up to date. medication administered per provider order. pt continues to wait for bed assignment at this time. respirations remain even and unlabored. pt's bedside for support. call philippe placed within reach.
--- NOTE | 2023-12-11 18:40 | PC.NURSE ---
admission worksheet completed. transport notified at this time.
[2023-12-11 19:20] VITALS: BP 107/59; PULSE 68; RESP 18; TEMP 37.1; O2SAT 97
[2023-12-11 19:40] VITALS: BMI 23.8
[2023-12-12 03:31] VITALS: BP 108/68; PULSE 66; RESP 16; TEMP 36.4; O2SAT 98
[2023-12-12] MEDS: Piperacillin Sodium/Tazobactam 4.5 GM in 0.9 % Sodium Chloride 100 ML IV (05:26)
[2023-12-12 06:28] LABS: MANUAL DIFF FLAG NO
[2023-12-12 06:48] LABS: Anion Gap 10 (12-20); Blood Urea Nitrogen 6 mg/dL (9-16); Calcium 8.4 mg/dL (8.4-10.2); Carbon Dioxide 27 mmol/L (22-29); Chloride 105 mmol/L (96-108); Creatinine Clr Calc Pharmacy 98.1; Estimated Glomerular Filt Rate > 60; Glucose Random 108 mg/dL (60-115); Potassium 3.6 mmol/L (3.3-5.1); Sodium 138 mmol/L (135-145)
[2023-12-12 06:53] LABS: Basophils Percent Auto 0.4 % (0-2); Eosinophils Absolute Auto 0.1 X10*3/uL (0.0-0.4); Eosinophils Percent Auto 1.6 % (0-4); Hematocrit 33.4 % (42.0-52.0); Hemoglobin 11.5 g/dl (14.0-18.0); Imm Gran Abs Auto 0.02 X10*3/uL (0.00-0.03); Imm Gran Pct Auto 0.3 % (0.0-0.4); Lymphocytes Absolute Auto 1.8 X10*3/uL (1.2-4.9); Lymphocytes Percent Auto 23.8 % (20-40); Mean Corpuscular HGB Conc 34.4 g/dl (31.0-36.0); Mean Corpuscular Hemoglobin 30.3 pg (27.0-33.0); Mean Corpuscular Volume 87.9 fL (80.0-98.0); Mean Platelet Volume 9.6 fL (9.4-12.4); Monocytes Absolute Auto 0.9 X10*3/uL (0.1-1.2); Monocytes Percent Auto 11.7 % (2-11); Neutrophils Absolute Auto 4.7 x10*3/uL (2.0-8.3); Neutrophils Percent Auto 62.2 % (45-73); Platelet Count 275 X10*3/uL (160-400); Red Cell Distribution Width 11.6 % (11.0-16.0); White Blood Count 7.5 X10*3/uL (4.8-10.8)
[2023-12-12 08:00] VITALS: BP 112/54; PULSE 58; RESP 16; TEMP 36.6; O2SAT 95
--- NOTE | 2023-12-12 08:33 | PM.DS ---
DS: Providers Provider Date of Service: 12/12/23 Date of admission: 12/11/23 11:38 Primary care physician: Sharri Abbott CNP DS: Diagnosis Discharge Diagnosis (1) Acute diverticulitis: Status: Acute DS: Summary Hospital Course Hospital Course: from initial hpi: 63-year-old male with past medical history of diverticulitis presents to the ED earlier today for evaluation of left lower quadrant abdominal pain with radiation to the back ongoing for 5 days. There has been associated nausea, headache. Describes an 8-9/10 intermittent pain which she describes as intense cramping and sharp pain. He had been given ciprofloxacin and Flagyl by his GI doctor, Dr. Weaver, and was started on clear liquid diet. He reports 3 days ago, was starting to feel better so advanced his diet but developed significant nausea. He downgraded his diet again to clear liquids but pain has not improved so he presented to the ED. Denies any fevers, chills, vomiting, diarrhea, lightheadedness, shortness of breath, chest pain. He has been experiencing constipation and has only had very small, hard bowel movements in the last 3 days. On arrival, vital signs stable. He is afebrile. There is a mild leukocytosis of 10.9, hematology studies otherwise unremarkable. Renal function normal, electrolyte levels normal. CRP elevated at 9.69, ESR 30. Lipase 12. Urinalysis unremarkable. CT abdomen/pelvis shows prominent circumferential a causal thickening involving the majority of the sigmoid colon with adjacent pericolonic fat stranding suggestive of acute colitis. There is no well-defined fluid collection identified or perforation. In the ED, has been given 1 L IV NS, IV Zosyn, and IV morphine. hospital course: patient was admitted for acute recurrent diverticulitis, he was treated with iv zosyn and hydrated. pain improved, patient was able to maintain oral hydration. he will be discharged home on 7 more days augmentin, will follow up with gi as outpatient. Time Attestation Discharge coordination time: Greater than 30 minutes Quality: Safe Use of Opioids Does Pt have an Active Cancer Diagnosis on the Problem List?: No Quality: Stroke Does the patient have a stroke diagnosis?: No Physical Exam Vital Signs: Vital Signs: Last Vital Signs Temp 98 F 12/12/23 08:00 Pulse 58 12/12/23 08:00 Resp 16 12/12/23 08:00 BP 112/54 L 12/12/23 08:00 Pulse Ox 95 12/12/23 08:00 O2 Del Method Room Air 12/12/23 08:00 BMI result Body Mass Index 23.8 General: AO X 3, no acute distress Resp: CTA bilateral, no accessory muscles used CVS: S1,S2,RRR GI: soft, non tender, non distended Neuro: motor grossly intact, alert Psych: appropriate affect, appropriate insight DS: Data Data Completed and Pending Labs on day of discharge: Laboratory Results - last 24 hr 12/11/23 12/11/23 12/12/23 06:12 09:15 06:03 WBC 7.5 RBC 3.80 L Hgb 11.5 L Hct 33.4 L MCV 87.9 MCH 30.3 MCHC 34.4 RDW 11.6 Plt Count 275 MPV 9.6 Immature Gran % (Auto) 0.3 Neut % (Auto) 62.2 Lymph % (Auto) 23.8 [place] % (Auto) 11.7 H Eos % (Auto) 1.6 Baso % (Auto) 0.4 Lymph # (Auto) 1.8 [place] # (Auto) 0.9 Eos # (Auto) 0.1 Baso # (Auto) 0.0 Abs Immat Gran (auto) 0.02 Absolute Neuts (auto) 4.7 Absolute Nucleated RBC 0.000 Nucleated RBC % (auto) 0.0 ESR 33 H Sodium 138 Potassium 3.6 Chloride 105 Carbon Dioxide 27 Anion Gap 10 L BUN 6 L Creatinine 0.77 Estim Creat Clear Calc 98.1 Estimated GFR > 60 Random Glucose 108 Calcium 8.4 D Magnesium 1.8 C-Reactive Protein 9.69 H Lipase 12 Urine Color Yellow Urine Appearance Clear Urine pH 6.5 Ur Specific [place] 1.010 Urine Protein Negative Urine Glucose (UA) Negative Urine Ketones 40 Urine Blood Trace Urine Nitrite Negative Ur Leukocyte Esterase Negative Urine RBC 0-2 Urine WBC 0-5 Ur Squamous Epith Cells 0-2 Urine Bacteria None Seen Hyaline Casts 0-2 Discharge Plan Discharge Anticipated Discharge Date/Time: 12/12/23 08:29 Patient Disposition: Home, Self-Care Discharge Diagnosis: diverticulitis Referrals: Sharri Abbott CNP [Primary Care Provider] - 1 Week Discharge Medications: New amoxicillin-pot clavulanate 875-125 mg tablet 1 tab PO BID Qty: 14 0RF Continued multivitamin Tablet 1 tab PO DAILY nystatin 500,000 unit tablet 1,000,000 unit PO BID Discontinued ciprofloxacin HCl 500 mg tablet 500 mg PO BID 7 Days Qty: 14 0RF metronidazole 500 mg tablet 500 mg PO TID 7 Days Qty: 21 0RF Discharge Orders: Discharge Order (Routine); Ordered 12/12/23 Ordered By: Bala Manzano Diet: Advance to usual diet Activity on Discharge: As tolerated Stand Alone Forms: Patient Portal Discharge page Care Plan Goals: recovery Health Concerns: recurrent diverticulitis Plan of Treatment: changing antibiotics to augmentin, maintain hydration, follow up with gi Assessment: see above
[2023-12-12] MEDS: Multivitamin TABLET 1 TAB PO (08:43)
[2023-12-12] MEDS: 0.9 % Sodium Chloride Flush 3 ML SYRINGE IVFLUSH (08:44)
--- NOTE | 2023-12-12 09:29 | MHC.CM.PN ---
pt dcd home no skilled servies
--- NOTE | 2023-12-12 09:36 | MHC.CM.NN ---
pt is dcd home no skilled servies orderd by
== END 2023-12-12 09:42 | disposition home or self-care (01) | DRG 392 ==
LOC: HO.ED 07:28 → HO.EDOVER 11:49 → HO.S3 17:50
PROVIDERS: Physician Assistant Medical; Admitting Provider Physician Assistant; Emergency Provider Emergency Medicine Emergency Medical Services; PCP Nurse Practitioner Family; Visit Provider Internal Medicine
DX: K57.32 Diverticulitis of large intestine without perforation or abscess without bleeding (principal); Z91.041 Radiographic dye allergy status; Z91.148 Patient's other noncompliance with medication regimen for other reason; Z79.899 Other long term (current) drug therapy
CPT/HCPCS: 36415; 74176; 80048; 80053; 81001; 83690; 83735; 85025; 85652; 86140; 99221; 99285; J1644; J2270; J2405; J2543

== ENCOUNTER → 2023-12-11 11:38 | Outpatient (BNV) | payer OTHER, SELFPAY | PROVIDERS: Admitting Provider Physician Assistant; Emergency Provider Emergency Medicine Emergency Medical Services; PCP Nurse Practitioner Family; Visit Provider Physician Assistant | DX: K57.92 Diverticulitis of intestine, part unspecified, without perforation or abscess without bleeding (principal) | CPT/HCPCS: 99223; 99239 ==

== ENCOUNTER 2024-03-20 07:15 | Emergency (ER) | payer OTHER, SELFPAY ==
--- NOTE | ~2024-03-20 | CT_ITS ---
EXAMINATION: CT ABDOMEN AND PELVIS WITHOUT CONTRAST CLINICAL INFORMATION: Abdominal pain with history of diverticulitis COMPARISON: CT abdomen pelvis 12/11/[address] abdomen pelvis dating back to 11/03/2019 TECHNIQUE: Multidetector volumetric imaging was performed from the superior aspect of the liver through the pubic symphysis. Sagittal and coronal reformatted images were obtained on the technologist's workstation. This CT examination was performed using dose optimization techniques as appropriate, variously including the following: *Automated exposure control *Adjustment of mA and/or kV according to patient size (this includes techniques or standardized protocols for targeted exams where dose is matched to indication/reason for exam; i.e. extremities or head) *Use of iterative reconstruction technique DLP: 381 mGy-cm FINDINGS: LUNG BASES: The visualized lung bases are unremarkable. LIVER, GALLBLADDER, AND BILIARY TREE: The liver is normal in size, shape, and attenuation. No focal hepatic lesion or biliary ductal dilatation is present. The gallbladder is unremarkable with no evidence of radiopaque gallstones, gallbladder wall thickening, or obvious pericholecystic inflammatory changes. PANCREAS: Unremarkable. SPLEEN: Unremarkable. ADRENAL GLANDS: Unremarkable. KIDNEYS AND URETERS: The kidneys are normal in size, shape, and attenuation. Again seen is a subtle 1.6 cm hyperattenuating mass in the mid left kidney with some peripheral calcium. On the 11/03/2019 study this mass was larger and hypoattenuating measuring 2 cm the calcium was more globular. No other renal masses are seen. No hydronephrosis, hydroureter, or calculi seen. No perinephric stranding. BLADDER: Unremarkable. GASTROINTESTINAL TRACT: Again seen is diverticulosis most prominent in the sigmoid colon with a persistent area of thickening and pericolonic inflammatory change (3:56-58). At the time of the prior study, there was some presacral fluid which is no longer seen. The remainder of the large bowel is unremarkable. The small bowel appears normal. The appendix is most likely present and generous in size but there is no evidence of appendicitis. ABDOMINAL WALL: No significant hernia is appreciated. There is a tiny right inguinal hernia seen containing only fat. LYMPH NODES: Normal. VASCULAR: Unremarkable. PELVIC VISCERA: Moderate BPH seminal vesicles appear normal OSSEOUS STRUCTURES: Unremarkable. CT/CT abdomen pelvis wo IV con IMPRESSION: Uncomplicated sigmoid diverticulitis. An underlying lesion cannot be excluded. Colonoscopy may be useful for further evaluation if this has not been performed recently. Fleischner guidelines were followed.
[2024-03-20 07:24] VITALS: BP 116/55; PULSE 88; RESP 18; TEMP 36.6; O2SAT 98; BMI 22.9
--- NOTE | 2024-03-20 08:11 | PC.NURSE ---
Patient reports has a hx of diverticulitis and was on vacation sunday when he started having abdominal pain, GI secondary school registrar for Dr. Simons called in Augmentin and patient took x 3 doses. Last dose taken was Sun and then patient stopped taking because he was having loose stools. Reports pain returned around 4am today in lower abdomen and back. States this am took cipro, flagyl, and tlyenol and does feel better but feels constipated and saw drops of blood in the toilet this am but does have a hx of hemmriods.
--- NOTE | 2024-03-20 08:24 | ED.ABDPAIN ---
HPI - Abdominal Pain General Chief Complaint: Abdominal Pain Stated Complaint: Diverticulitis flare up ? Time Seen by Provider: 03/20/24 08:24 Source: patient Mode of arrival: ambulatory Limitations: no limitations History of Present Illness HPI narrative: Patient is a 63-year-old male with history of diverticulitis presenting to the emergency department with complaint of lower abdominal pain which began on Sunday. He states that his symptoms feel typical of his diverticulitis flares. States that he contacted Dr. Weaver's office on Sunday and the on-call provider sent a prescription for Augmentin. Patient states was taking this until yesterday when he developed 3-4 episodes of diarrhea. He was unsure if this was related to his diverticulitis or if this was due to the Augmentin. He states that he stopped taking the Augmentin and took a dose of leftover Cipro and Flagyl last night. He denies fevers, nausea, vomiting. Reports pain increased last night. Also complains of radiation to back. Reports that he noted a small amount of blood when he was wiping after going to the bathroom this morning. Denies any other episodes of hematochezia or melena. MD elicited complaint: abdominal pain Pertinent past history: diverticulitis Onset (ago): day(s) Pain Consistency: colicky Location: RLQ and LLQ Severity: moderate Quality: cramping and aching Radiation: back Migration to: no migration Treatments prior to arrival: other Related Data Home Medications ?Medication ?Instructions ?Recorded ?Confirmed multivitamin 1 tab PO DAILY 12/11/23 12/11/23 nystatin 500,000 unit tablet 1,000,000 unit PO BID 12/11/23 12/11/23 Previous Rx's ?Medication ?Instructions ?Recorded amoxicillin 875 mg-potassium 1 tab PO BID 10 days #20 tabs 03/16/24 clavulanate 125 mg tablet ciprofloxacin HCl 500 mg tablet 500 mg PO BID #20 tabs 03/20/24 metronidazole 500 mg tablet 500 mg PO TID #30 tabs 03/20/24 Allergies Allergy/AdvReac Type Severity Reaction Status Date / Time Iodinated Contrast Media Allergy Severe ANAPHYLAXIS Verified 03/20/24 07:26 [IV DYE, IODINE CONTAINING] contrast dye Allergy Unknown throat Uncoded 03/20/24 07:26 swelling Review of Systems Review of Systems As per HPI. Yes all other systems are reviewed and are negative PMFSH Past Medical History Medical History (Updated 03/20/24 @ 11:28 by Michelle Gore NP) Diverticulitis Social History Social History Household Members: Family Housing: House Do you presently have visiting nurse or other home services: No Alcohol intake: former Patient Tobacco Use Status: Never used Tobacco Smoked in Last 30 Days: No Use of substances other than those prescribed or required for medical reasons: No Advance Directives: No Do you have a plan to hurt others: No Plan Physical Exam ED Vital Signs: Vital Signs - 24 hr 03/20/24 07:24 Temperature 98 F Pulse Rate 88 Respiratory Rate 18 Blood Pressure 116/55 L Pulse Oximetry 98 Oxygen Delivery Method Room Air BMI result Body Mass Index 22.9 Medical Decision Making Medical Decision Making [facility] Narrative: Patient is a 63-year-old male with history of diverticulitis presenting to the emergency department with complaint of lower abdominal pain which began on Sunday. On exam patient is awake, A+Ox3, VS WNL, afebrile, normal neurological exam without focal deficits, physical exam findings as above. Given reported symptoms and physical exam findings, initial differential includes diverticulitis, UTI. Labs notable for no leukocytosis, mild anemia, no significant electrolyte abnormalities, no evidence of SHAILESH, normal LFTs. No evidence of infection on urinalysis. Discussed option of imaging with patient versus ongoing treatment with antibiotics. Through shared decision making, patient would like to proceed with CT. CT notable for sigmoid diverticulitis. My interpretation is in agreement with the radiologist's interpretation. Patient updated on results and all questions answered. Given that patient has discontinued the Augmentin for over 24 hours and has begun taking Cipro and Flagyl, will continue patient on course of Cipro and Flagyl. Instructed patient to follow-up with GI. Return precautions discussed at bedside. Patient verbalized understanding of and agreement with plan. Differential Diagnosis Differential Diagnoses: The differential diagnosis associated with the presentation includes As per [facility]. Admission/Observation Consideration of admission/observation: Escalation of care including admission/observation considered Patient would have been admitted to the hospital had their work up had any findings where hospital admission was appropriate and their clinical presentation warranted hospital admission. Lab Data [facility] Lab Attestation statement: I reviewed the patient's lab results. As per MDM 03/20/24 08:39 03/20/24 08:39 Labs: Lab Results 03/20/24 Range/Units 08:39 WBC 9.9 (4.8-10.8) X10*3/uL RBC 4.17 L (4.60-5.80) X10*6/uL Hgb 12.8 L (14.0-18.0) g/dl Hct 35.9 L (42.0-52.0) % MCV 86.1 (80.0-98.0) fL MCH 30.7 (27.0-33.0) pg MCHC 35.7 (31.0-36.0) g/dl RDW 12.2 (11.0-16.0) % Plt Count 294 (160-400) X10*3/uL MPV 9.1 L (9.4-12.4) fL Immature Gran % (Auto) 0.4 (0.0-0.4) % Neut % (Auto) 80.3 H (45-73) % Lymph % (Auto) 10.6 L (20-40) % [place] % (Auto) 7.4 (2-11) % Eos % (Auto) 0.9 (0-4) % Baso % (Auto) 0.4 (0-2) % Lymph # (Auto) 1.1 L (1.2-4.9) X10*3/uL [place] # (Auto) 0.7 (0.1-1.2) X10*3/uL Eos # (Auto) 0.1 (0.0-0.4) X10*3/uL Baso # (Auto) 0.0 (0.0-0.2) X10*3/uL Abs Immat Gran (auto) 0.04 H (0.00-0.03) X10*3/uL Absolute Neuts (auto) 8.0 (2.0-8.3) x10*3/uL Absolute Nucleated RBC 0.000 (0.0-0.012) X10*3/uL Nucleated RBC % (auto) 0.0 (0.0-0.2) /100WBC PT 11.5 (11.1-13.3) SEC INR 0.9 (0.9-1.1) Sodium 137 (135-145) mmol/L Potassium 3.5 (3.3-5.1) mmol/L Chloride 102 (96-108) mmol/L Carbon Dioxide 26 (22-29) mmol/L Anion Gap 13 (12-20) BUN 10 (9-16) mg/dL Creatinine 0.66 (0.5-1.4) mg/dL Estim Creat Clear Calc 113.9 Estimated GFR > 60 Random Glucose 99 (60-115) mg/dL Calcium 9.0 D (8.4-10.2) mg/dL Magnesium 1.8 (1.6-2.6) mg/dL Total Bilirubin 0.4 (0.0-1.0) mg/dL AST 26 (5-37) U/L ALT 28 (0-40) U/L Alkaline Phosphatase 105 (39-117) U/L Total Protein 6.5 (6.5-8.0) g/dL Albumin 3.7 (3.5-5.0) g/dL Urine Color Yellow Urine Appearance Clear Urine pH 5.5 (5.0-9.0) Ur Specific [place] 1.015 (1.005-1.025) Urine Protein Negative (Neg-Trace) mg/dL Urine Glucose (UA) Negative (Negative) mg/dL Urine Ketones Negative (Negative) mg/dL Urine Blood Negative (Negative) Urine Nitrite Negative (Negative) Ur Leukocyte Esterase Negative (Negative) Independent Interpretation I performed an independent interpretation of an: CT Scan Interpretation: Uncomplicated sigmoid diverticulitis on CT A/P. Radiology Impression Discussion of test interpretation with radiology: I have reviewed the radiologist's reading. Radiologist Impression: CT/CT abdomen pelvis wo IV con IMPRESSION: Uncomplicated sigmoid diverticulitis. An underlying lesion cannot be excluded. Colonoscopy may be useful for further evaluation if this has not been performed recently. Fleischner guidelines were followed. External Record Review External record reviewed: Inpatient record, Office record and Outpatient record Prescription Management I considered prescription management with: Antibiotic Discharge Plan Discharge Clinical Impression: Sigmoid diverticulitis Patient Disposition: Home, Self-Care Instructions: Diverticulitis (ED) Additional Instructions: You were evaluated in the emergency department today for abdominal pain. Your CT scan showed evidence of sigmoid diverticulitis. Because you stopped your Augmentin and started Cipro/Flagyl, you will be continued on a course of Cipro/Flagyl. Please do not take any additional doses of the Augmentin that you were previously prescribed. We recommend that you contact your email deployment specialist to advise them of the change in your treatment course. We recommend that you follow-up with your primary care provider as well. Return to the emergency department if you develop increasing pain, fever, persistent vomiting or any other concerning symptoms. Prescriptions: New ciprofloxacin HCl 500 mg tablet 500 mg PO BID Qty: 20 0RF metronidazole 500 mg tablet 500 mg PO TID Qty: 30 0RF No Action amoxicillin-pot clavulanate 875-125 mg tablet 1 tab PO BID 10 Days Qty: 20 0RF multivitamin Tablet 1 tab PO DAILY nystatin 500,000 unit tablet 1,000,000 unit PO BID Referrals: Arsen Weaver MD [Physician] - Print Language: Estonian
[2024-03-20 08:45] LABS: MANUAL DIFF FLAG NO
[2024-03-20 08:48] LABS: Appearance Urine Clear; Color Urine Yellow; Glucose Urine UA Negative (Negative); Leukocyte Esterase Urine Negative (Negative); Nitrite Urine Negative (Negative); PH 5.5 (5.0-9.0); Specific Gravity - Urine 1.015 (1.005-1.025); Urine Blood Negative (Negative); Urine Ketones Negative (Negative); Urine Protein Negative (Neg-Trace)
[2024-03-20 08:49] LABS: Basophils Percent Auto 0.4 % (0-2); Eosinophils Absolute Auto 0.1 X10*3/uL (0.0-0.4); Eosinophils Percent Auto 0.9 % (0-4); Hematocrit 35.9 % (42.0-52.0); Hemoglobin 12.8 g/dl (14.0-18.0); Imm Gran Abs Auto 0.04 X10*3/uL (0.00-0.03); Imm Gran Pct Auto 0.4 % (0.0-0.4); Lymphocytes Absolute Auto 1.1 X10*3/uL (1.2-4.9); Lymphocytes Percent Auto 10.6 % (20-40); Mean Corpuscular HGB Conc 35.7 g/dl (31.0-36.0); Mean Corpuscular Hemoglobin 30.7 pg (27.0-33.0); Mean Corpuscular Volume 86.1 fL (80.0-98.0); Mean Platelet Volume 9.1 fL (9.4-12.4); Monocytes Absolute Auto 0.7 X10*3/uL (0.1-1.2); Monocytes Percent Auto 7.4 % (2-11); Neutrophils Percent Auto 80.3 % (45-73); Platelet Count 294 X10*3/uL (160-400); Red Blood Count 4.17 X10*6/uL (4.60-5.80); Red Cell Distribution Width 12.2 % (11.0-16.0); White Blood Count 9.9 X10*3/uL (4.8-10.8)
[2024-03-20 09:03] LABS: Alanine Aminotransferase 28 U/L (0-40); Albumin Level 3.7 g/dL (3.5-5.0); Alkaline Phosphatase 105 U/L (39-117); Anion Gap 13 (12-20); Aspartate Amino Transferase 26 U/L (5-37); Bilirubin Total 0.4 mg/dL (0.0-1.0); Blood Urea Nitrogen 10 mg/dL (9-16); Carbon Dioxide 26 mmol/L (22-29); Chloride 102 mmol/L (96-108); Creatinine Clr Calc Pharmacy 113.9; Estimated Glomerular Filt Rate > 60; Glucose Random 99 mg/dL (60-115); Magnesium 1.8 mg/dL (1.6-2.6); Potassium 3.5 mmol/L (3.3-5.1); Sodium 137 mmol/L (135-145); Total Protein 6.5 g/dL (6.5-8.0)
[2024-03-20 09:04] LABS: INTERNATIONAL NORM RATIO 0.9 (0.9-1.1); Prothrombin Time 11.5 SEC (11.1-13.3)
[2024-03-20 11:38] VITALS: BP 116/55; PULSE 88; RESP 18; TEMP 36.6; O2SAT 98
== END 2024-03-20 11:44 | disposition home or self-care (01) ==
PROVIDERS: Registered Nurse Emergency; Emergency Provider Emergency Medicine; PCP Nurse Practitioner Family
DX: K57.32 Diverticulitis of large intestine without perforation or abscess without bleeding (principal); R10.32 Left lower quadrant pain; M54.50 Low back pain, unspecified; Z79.899 Other long term (current) drug therapy
CPT/HCPCS: 36415; 74176; 80053; 81003; 83735; 85025; 85610; 99284

== ENCOUNTER 2024-04-09 10:59 | Outpatient (AMB) | payer OTHER, SELFPAY ==
--- NOTE | 2024-04-09 11:01 | A.OFFVIS_ITS ---
Vital Signs 04/09/24 11:10 Height 5 ft 9 in Weight 145 lb BMI 21.4 BP 105/55 L Blood Pressure Location Rt brachial Position Sitting Pulse 57 Intake Visit Reasons: Diverticulitis, discuss surgery Intake Note: This patient presents for an assessment for diverticulitis, discuss surgery. Pt c/o; reports had a diverticulitis flare-up Nov 2023 and about 3-4 weeks ago. Track Laying Equipment Operator Required: No Accompanied by: Other Relationship Allergies Iodinated Contrast Media [IV DYE, IODINE CONTAINING] Allergy (Severe, Verified 04/09/24 11:14) ANAPHYLAXIS contrast dye Allergy (Unknown, Uncoded 04/09/24 11:14) throat swelling Medication List - Last Reconciled 04/09/24 by Rodney Arciniega MD amoxicillin-pot clavulanate 875-125 mg 1 tab PO BID 10 days ciprofloxacin HCl 500 mg PO BID metronidazole 500 mg PO TID multivitamin 1 tab PO DAILY nystatin 1,000,000 units PO BID HPI HPI Diverticulitis, discuss surgery: Details: 63-year-old male here for recurrent diverticulitis. He says that he has been diagnosed to have diverticulitis since 2020. He says that for the past 10 months he may have had 3 episodes in has been to the ER for this. He said he had been admitted overnight only 1 time His last episode was last March 20 and he was sent home from the ER on oral antibiotics He feels well overall. He denies any symptoms at this time His last colonoscopy was in [address] Weaver He was also admitted for inflammation of the terminal ileum and cecum in 2019. He says he has lost 10-20 lb of weight the past few months because he did not want to eat due to his episode of diverticulitis. [facility] Medical History (Updated 04/09/24 @ 11:40 by Rodney Arciniega MD) History of diverticulitis Diverticulitis Surgical History History of ear surgery Family History Other Family history unknown Social History Household Members: Family Housing: House Do you presently have visiting nurse or other home services: No Alcohol intake: former Patient Tobacco Use Status: Never used Tobacco Review of Systems Const Denies chills, Denies fever(s) and Reports weight loss Card Denies chest pain, Denies dyspnea and Denies dyspnea on exertion Resp Denies cough, Denies dyspnea and Denies dyspnea on exertion GI Denies hematochezia and Denies change in bowel habits Denies hematuria and Denies difficulty urinating Musc Denies back pain and Denies limited range of motion Neuro Denies focal weakness and Denies convulsions Psych Denies depression and Denies mood swings Physical Exam Vital Signs: Last Vital Signs Pulse 57 04/09/24 11:10 BP 105/55 L 04/09/24 11:10 BMI result Body Mass Index 21.4 Const General: comfortable and no acute distress Orientation/consciousness: patient oriented x3 Neck Neck: Yes no lymphadenopathy Resp Auscultation: clear to auscultation bilaterally Cardio Rhythm: regular rhythm GI Palpation (GI): Soft to palpation, nontender and no guarding Neuro General: patient oriented x3 Assessment & Plan Assessment & Plan (1) History of diverticulitis: Code(s): Z87.19 - Personal history of other diseases of the digestive system Category: Medical Plan: He has had recurrent diverticulitis 1st diagnosed in 2020. He says that has had 3 episodes the past 10 months or so although he had been admitted only 1 time. He is interested in having sigmoid resection. I had a long discussion with him about the technique of hand assisted laparoscopic sigmoid resection and possible stoma. I reviewed the risks including but not limited to bleeding, infections, possibility of converting to an open procedure, injury to other organs, inherent risks of anesthesia, as well as the benefits and alternatives bed I explained to him what to expect postoperatively He says that he is considering this down the line. However, he does not want this done earlier than summer time as he has a lot of plans already I had recommended for him to see Dr. Weaver for a colonoscopy prior to him having surgery if he decides to. He understands the risk of more recurrences He states that he will call me again a returned to the office after the summer. Coding Level of Care Code New Pt Level 3 (38879) Diagnoses History of diverticulitis Z87.19
[2024-04-09 11:10] VITALS: BP 105/55; PULSE 57; BMI 21.4
== END 2024-04-09 11:37 | disposition home or self-care (01) ==
PROVIDERS: PCP Nurse Practitioner Family; Referring Provider Internal Medicine; Visit Provider Surgery
DX: Z87.19 Personal history of other diseases of the digestive system (principal)
CPT/HCPCS: 99204

== ENCOUNTER → 2024-04-09 10:59 | Outpatient (BNVA) | payer OTHER, SELFPAY | PROVIDERS: PCP Nurse Practitioner Family; Referring Provider Internal Medicine; Visit Provider Surgery ==

== ENCOUNTER 2025-05-08 09:04 | Day surgery (SDC) | payer OTHER, SELFPAY ==
--- OUTSIDE RECORDS SUMMARY | 2025-03-20 07:27 | XMS_ITS ---
Author Organization [facility] Address [address] [place] [id number] Care Team Providers Care Fire Protection Designer Name Role Phone CATHERINE BATISTA MD Primary Care Provider Unavailab Catherine Hemphill [phone] REASON FOR VISIT not well Encounters Encounter Location Date Provider Diagnosis [facility] [address] [place] [id number] 03/31/2024 Catherine Weaver Plan Of Treatment Next Appt Details Provider Name:Catherine Weaver , 05/08/2025 10:30:00 AM, [address] [place] [address] , [place], [place], [phone], Progress Notes * SUNIL MATHURDOB:1960 (63 yo M)Acc No.[id number]:03/31/2024 Patient:?SUNIL MATHUR :1960???Age:63 Y???Sex:Male Address:[address] [place] [address] * true * Date:? Generated for Printi dimple/Fred/eTransmitting on:?03/20/2025 07:27 AM EDT
--- OUTSIDE RECORDS SUMMARY | 2025-03-20 07:27 | XMS_ITS ---
Author Organization [facility] Address [address] [place] [address] Care Team Providers Care Meter Repairer Name Role Phone CATHERINE BATISTA MD Primary Care Provider UnavailCatherine Guzman Unavailable [phone] Allergies Allergen (clinical drug ingredient) Drug/Non Drug Allergy documented on EMR Reaction Allergy Type Onset Date Status terbinafine Terbinafine HCl Unknown Drug Allergy Active ivp dye (uncoded) Unknown Allergy Ac tive REASON FOR VISIT Patient presents today for a COLON SCREENING Medications Medication SIG (Take, Route, Frequency, Duration) Notes Start Date End Date Status Vancomycin HCl 125 MG 2 BID x 2 weeks, 2 QD x 2 weeks, 2QOD x 2 wks, 2 Q 3rd day x 2 wks Orally Daily for 56 days 01/27/2020 Not-Taking Vitamin C Active Multi Vitamin/Minerals prn Active Vitamin D Active Culturelle - as directed Orally Active Problems Problem Type SNOMED Code ICD Code Onset Dates Problem Status W/U Status Risk Notes Problem Diverticular disease of colon (164887451) Diverticulosis (K57.90) Active confirmed Vital Signs Blood pressure systolic 111 mm Hg 01/08/20 25 Blood pressure diastolic 11 mm Hg 025 Height 69 in 01/08/2025 Weight 154 lbs 01/08/2025 BMI 22.74 kg/m2 01/08/2025 Procedures Procedure Date Ordered Date Performed Result Body Sit e COLONOSCOPY 01/08/2025 N/A Encounters Encounter Location Date Provider Diagnosis [facility] [address] [place] [address] 01/08/2025 Catherine Weaver Diverticulosis K57.9 0 ; Colon cancer screening Z12.11 and Diverticulitis K57.92 Assessments Encounter Date Diagnosis (ICD Code) Assessment Notes Treatment Notes Treatment Clinical Notes Section Notes 01/08/2025 Diverticulosis (ICD-10 - K57.90) Continue Metamucil and Probiotics. Continue a high fiber diet and a lot of water 01/08/2025 Colon cancer screening (ICD-10 - Z12.11) 01/08/2025 Diverticulitis (ICD-10 - K57.92) Plan Of Treatment Treatment Notes Assessment Notes Diverticulosis Continue Metamucil a nd Probiotics. Continue a high fiber diet and a lot of water Pending Test Test Name Order Date COLONOSCOPY 01/08/2025 Next Appt Details Follow Up: prn, Reason: Provider Name:Catherine Weaver , 05/08/2025 10:30:00 AM, [address] [place] [address], [phone], Progress Notes * SUNIL MATHURDOB:1960 (64 yo M)Acc No.[id number]:01/08/2025 Progress Notes Patient:?SUNIL MATHUR Provider:?Catherine Weaver MD :1960???Age:64 Y???Sex:Male Braden e:01/08/2025 Address:[address] [place], [place] [id number] Pcp:CATHERINE BATISTA MD Subjective: * Chief Complaints: * ???Patient presents today fo r a COLON SCREENING * Medical History:? * Surgical History:?hemorrhoid banding deviated septum surgery microvascular nerve decompression for trigeminal neuralgia--Dr. Muñoz hernia repair- Dr. Noland 2018bone growth removed in left ear- [facility] 2019 * Hospitalization/Major Diagno stic Procedure:?No Hospitalization History. * Family History:?Father: dece ased.?Mother: , hx of diverticulitis, diagnosed with HTN (hypertension), Heart disease.?Non-Contributory.? There is no family history of colorectal cancer, nor inflammatory bowel disease. * Social History:?Tobacco Use:?Tobacco Use/Smoking?Patient is a: nonsmoker.?Drugs/Alcohol:?Alcohol Screen?Points: 3, Interpretation: Negative.?Miscellaneous:?Marital status: . 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 ???Nonsmoker; no sig alcohol. * Medications:?TakingCulturell e - Capsule as directed Orally Vitamin D Multi Vitamin/Minerals , Notes to Pharmacist: prnVitamin C Taking Culturelle - Capsule as directed Orally Taking Vitamin D Taking Multi Vitamin/Minerals , Notes to Pharmacist: prnTaking Vitamin C Not-Taking/PRNVancomycin HCl 125 MG Capsule 2 BID x 2 weeks, 2 QD x 2 weeks, 2QOD x 2 wks, 2 Q 3rd day x 2 wks Orally Daily Not-Taking/PRN Vancomycin HCl 125 MG Capsule 2 BID x 2 weeks, 2 QD x 2 weeks, 2QOD x 2 wks, 2 Q 3rd day x 2 wks Orally Daily DiscontinuedNystatin 008256 UNIT/ML Suspension 4 ml Mouth/Throat Four times a day Ciprofloxacin HCl 500 MG Tablet 1 tablet Orally every 12 hrs , Notes to Pharmacist: started 12/13/2021 x 10 daysmetroNIDAZOLE 500 MG Tablet 1 tablet Orally Three times a day , Notes to Pharmacist: started 12/13/2021 x 10 daysCipro 500 MG Tablet 1 tablet Orally every 12 hrs metroNIDAZOLE 500 MG Tablet 1 tablet Orally Three times a day Vancocin HCl 125 MG Capsule 1 capsule Orally every 6 hrs Medication List reviewed and reconciled with the patientDiscontinued Nystatin 940129 UNIT/ML Suspension 4 ml Mouth/Throat Four times a day Discontinued Ciprofloxacin HCl 500 MG Tablet 1 tablet Orally every 12 hrs , Notes to Pharmacist: started 12/13/2021 x 10 daysDiscontinued metroNIDAZOLE 500 MG Tablet 1 tablet Orally Three times a day , Notes to Pharmacist: started 12/13/2021 x 10 daysDiscontinued Cipro 500 MG Tablet 1 tablet Orally every 12 hrs Discontinued metroNIDAZOLE 500 MG Tablet 1 tablet Orally Three times a day Discontinued Vancocin HCl 125 MG Capsule 1 capsule Orally every 6 hrs Medication List reviewed and reconciled with the patient * Allergies:?ivp dyeTerbinafin e HClyes[Allergies Verified] Objective: * Vitals:?Wt:154lbs, Ht: 69 in , BMI:22.74Index, BP:111/11mm Hg, Wt-k.85. Assessment: * Assessment: 1.?Diverticulosis - K57.90 ( Primary)???2.?Colon cancer screening - Z12.11???3.?Diverticulitis - K57.92??? Plan: * Treatment: 2.?Colon cancer screening?Procedure: COLONOSCOPY * Procedure Codes:?08816 DIAGN OSTIC [id number] COLORECTAL CA SCREEN DOC [id number] TOBACCO NON-SOQLM4694 BP SCR NOT PRFRM REC REASON IET7178Y RCMND FLW-UP 10 YRS DOCD * Follow Up:?prn * * Sign off status: Completed true * Provider:?Catherine Weaver MD Date:? 025 Generated for Lino musa/Fred/Alen on:?03/20/2025 07:27 AM EDT
--- OUTSIDE RECORDS SUMMARY | 2025-03-20 07:28 | XMS_ITS ---
Author Organization [facility] Address [address] [place] [address] Care Team Providers Care Heavy Equipment Sales Manager Name Role Phone CATHERINE BATISTA MD Primary Care Provider Unavailab Catherine Hemphill [phone] REASON FOR VISIT HAS AN APPT WITH DR BRADFORD Encounters Encounter Location Date Provider Diagnosis [facility] [address] [place] [address] 03/25/2024 Catherine Weaver Plan Of Treatment Next Appt Details Provider Name:Catherine Weaver , 05/08/2025 10:30:00 AM, [address] [place] [address] , [place], [place], [phone], Progress Notes * SUNIL MATHURDOB:1960 (63 yo M)Acc No.[id number]:03/25/2024 Patient:?SUNIL MATHUR :1960???Age:63 Y???Sex:Male Address:[place] [address] * true * Date:? Generated for Printi ng/Faxing/eTransmitting on:?03/20/2025 07:27 AM EDT
--- OUTSIDE RECORDS SUMMARY | 2025-03-20 07:28 | XMS_ITS | Patient Health Record ---
Author Organization [facility] Address [address] [place] [address] Care Team Providers Care Assembly Machine Set Up Mechanic Name Role Phone CATHERINE BATISTA MD Primary Care Provider Catherine Simmons Unavailable [phone] Allergies Allergen (clinical drug ingredient) Drug/Non Drug Allergy documented on EMR Reaction Allergy Type Onset Date Status terbinafine Terbinafine HCl Unknown Drug Allergy Active ivp dye (uncoded) Unknown Allergy Ac tive Reason For Referral No Information Medications Medication SIG (Take, Route, Frequency, Duration) Notes Start Date End Date Status Vancomycin HCl 125 MG 2 BID x 2 weeks, 2 QD x 2 weeks, 2QOD x 2 wks, 2 Q 3rd day x 2 wks Orally Daily for 56 days 01/27/2020 Not-Taking Vitamin C Active Multi Vitamin/Minerals prn Active Vitamin D Active Culturelle - as directed Orally Active Immunizations Vaccine Route Administration Date Status Comme nts Influenza Unknown 01/06/2020 Refused Influenza Unknown 12/15/2021 Refused Influenza Unknown 08/28/2023 Refused Problems Problem Type SNOMED Code ICD Code Onset Dates Problem Status W/U Status Risk Notes Problem 127911833 Colon cancer screening (Z12.11) Active confirmed Problem 282584247 Encounter for screening for malignant neoplasm of colon (Z12.11) Active confirmed Problem Screening for malignant neoplasm of rectum (582404206) Encounter for screening for malignant neoplasm of rectum (Z12.12) Active confirmed Problem 961351615 Diverticulitis (K57.92) Active confirmed Problem Diverticular disease of colon (316462607) Diverticulosis (K57.90) Active confirmed Problem 241605202 Gastroesophageal reflux disease, esophagitis presence not specified (K21.9) Active confirmed Problem 727124321 Abnormal CT scan , small bowel (R93.3) Active confirmed Problem 83440953 Diarrhea, unspecified type (R19.7) Active confirmed Problem 735455122 RLQ abdominal pa in (R10.31) Active confirmed Problem 731743362115003 History of Clostridium difficile infection (Z86.19) Active confirmed Problem 48089663 Diarrhea of presumed infectious origin (R19.7) Active confirmed Vital Signs Blood pressure diastolic 11 mm Hg 01/08/2025 Height 69 in 01/08/2025 Blood pressure systolic 111 mm Hg 01/08/2025 Weight 154 lbs 01/08/2025 BMI 22.74 kg/m2 01/08/2025 Procedures Procedure Date Ordered Date Performed Result Body Sit e COLONOSCOPY 01/08/2025 N/A Encounters Encounter Location Date Provider Diagnosis [facility] [address] [place] [address] 01/08/2025 Catherine Weaver Diverticulosis K57.9 0 ; Colon cancer screening Z12.11 and Diverticulitis K57.92 [facility] [address] [place] [phone] 03/20/2024 Catherine Weaver [facility] [address] [place] [phone] 03/25/2024 Catherine Weaver [facility] [address] [place] [phone] 03/31/2024 Catherine Weaver Assessments Encounter Date Diagnosis (ICD Code) Assessment Notes Treatment Notes Treatment Clinical Notes Section Notes 01/08/2025 Colon cancer screening (ICD-10 - Z12.11) 01/08/2025 Diverticulosis (ICD-10 - K57.90) Continue Metamucil and Probiotics. Continue a high fiber diet and a lot of water 01/08/2025 Diverticulitis (ICD-10 - K57.92) Plan Of Treatment Pending Test Test Name Order Date COLONOSCOPY 01/08/2025 OTHER REF LAB TEST - MISC 01/06/2020 CT ABD & PELVIS WITH CONTRAST 01/06/2020 STOOL WBC 01/06/2020 C DIFFICILE RFLX PCR 01/27/2020 C DIFFICILE RFLX PCR 12/10/2023 Calprotectin, Fecal 12/10/2023 GI PANEL 12/10/2023 Future Test Test Name Order Date UPPER GI ENDOSCOPY 08/08/2016 COLONOSCOPY 11/04/2019 Next Appt Details Provider Name:Catherine Weaver , 05/08/2025 10:30:00 AM, [address] [place] [address] , [place], [place], [phone], Insurance Providers Payer Name Payer Address Payer Phone Subscriber Number Group Number Insured Name Patient Relationship to Insured Coverage Start Date Coverage End Date [facility] [address] [place] [phone] [id number] SUNIL MATHUR Self - patient is the insured Medical (General) History Medical History History ICD Code Colonoscopy 01-25-2011--neg. except for a perianal lesion--removed by Dr. Velasquez--inflammatory polyp--no adenoma, no dayplasia Trigeminal neuralgia Denies IN,DM,CVA,Lung disease,renal dise ase Occ. GERD and chest pain--sheets d a neg ETT in 07/2016--EGD in 2015 was negative for significant esophagitis nor Orozco's esophagus; there was a small hiatal hernia and benign gastric polyps Episode of pain with changes of possible Crohn's disease of the ileum and ascending colon in late October of 2019 as seen on CAT scan. This responded to prednisone and a colonoscopy in early November of 2019 revealed a normal terminal ileum and colon, other than some slight areas of erythema in the cecum. Biopsies from the terminal ileum and colon were normal, other than some minimal changes of inflammation in the cecum. However, this did not appear to reflect any underlying chronic inflammatory bowel disease. 11/2019 normal colonoscopy as above, except for significant sigmoid colon diverticulosis C. difficile infection in [facility] 2019 treated with vancomycin. The C. difficile relapsed in January of 2020 and he required a tapering course of vancomycin with ultimately good relief of his C. difficile and without any relapsing episodes Sigmoid diverticulitis seen on CT scan during ER visit in June of 2021--no complicating features--treated with outpatient antibiotics. He had an episode of left lower quadrant pain and tenderness in December of 2021 that resolved with Cipro and Flagyl as an outpatient--a CT scan was not obtained. Presumed episodes of recurre nt sigmoid diverticulitis in December of 2021 and May of [address]23. CT scans were not done but he did respond well to oral antibiotics Cipro and Flagyl on each occasion. Episode of sigmoid diverticu litis on CT scan in 03/2024 treated as an outpatient, He saw Dr. Arciniega in 2023 but patient opted to hold off on surgery for the diverticulitis Surgical History Surgery Date(Month/Year) bone growth removed in left ear- [facility] 2019 hernia repair- Dr. Noland 2018 microvascular nerve decompre ssion for trigeminal neuralgia--Dr. Muñoz deviated septum surgery hemorrhoid banding
[2025-05-06 14:11] VITALS: BMI 22.7
--- NOTE | 2025-05-07 12:18 | HO.ANESPROP2 ---
HPI - Anesthesia Eval Consult details Narrative: 64yo M for Colonoscopy PMFSH Active Problems Active Problems: All Active Problems Acute diverticulitis (Acute) History of diverticulitis (Acute) Past Medical History Medical History Diverticulitis Family History Family History Other Family history unknown Surgical History Surgical History Hx of colonoscopy History of ear surgery Social History Social History Household Members: Family Housing: House Are you a primary home care administrator to a significant other at home: No Do you presently have visiting nurse or other home services: No Alcohol intake: former Patient Tobacco Use Status: Never used Tobacco Have you been hit, kicked, punched, or otherwise hurt by someone within the past year? If so, by whom?: No Are you DNR?: No Advance Directives: No Advance Directives Information Provided: Yes Poor oral hygiene: No Meds Allergies Allergy/AdvReac Type Severity Reaction Status Date / Time Iodinated Contrast Media (IV Allergy Severe ANAPHYLAXIS Verified 05/08/25 09:27 DYE, IODINE CONTAINING) Home Medications ?Medication ?Instructions ?Recorded ?Confirmed ?Last Taken ?Type multivitamin 1 tab PO DAILY 12/11/23 05/06/25 Unknown History Exam Height,Weight and Vital Signs: Height 5 ft 9 in Weight 69.853 kg Assessment and Plan Assessment Anesthesia Assessment: Chart Reviewed
--- NOTE | ~2025-05-08 | CT_ITS ---
EXAMINATION: CT COLONOGRAPHY CLINICAL INFORMATION: Incomplete colonoscopy, previous diverticulitis COMPARISON: CT abdomen and pelvis March 20, 2024 TECHNIQUE: Bowel preparation: Good. Colonic distention: CO2 mechanical insufflator used via enema tube with incomplete distention due to continuous air leak limiting evaluation for stricture. Acquisition: Low dose imaging targeted to colonic was performed in the supine position; the patient could not tolerate a prone position. Procedure: The procedure was poorly tolerated. Review: The acquired images were reviewed in axial, coronal and sagittal planes. 3-D data set was not generated per hospital protocol This CT examination was performed using dose optimization techniques as appropriate, variously including the following: *Automated exposure control *Adjustment of mA and/or kV according to patient size (this includes techniques or standardized protocols for targeted exams where dose is matched to indication/reason for exam; i.e. extremities or head) *Use of iterative reconstruction technique DLP: 286 mGY*cm FINDINGS: Colonic findings: There are multiple areas of wall thickening and luminal narrowing related to the poor distention and limited positioning secondary to patient pain. Diverticulosis is evident in the descending and sigmoid colon. Non-colonic findings: Liver and gallbladder are unremarkable. Spleen is unremarkable. Small focal area of parenchymal calcification is present in the posterior mid left kidney. Pancreas and adrenal glands are unremarkable. Mild multifocal atherosclerotic ossifications are present in the aorta and iliac arteries. Multilevel degenerative disc disease and facet arthropathy is present. CT/CT colonography IMPRESSION: Very limited examination. Patient did not tolerate prone positioning because of pain and there was a continuous air leak during the procedure limiting evaluation for stricture. Also, due to poor distention, definitive distinction between polyps and Haustral folds, or carpet lesions and poor distention is severely limited. Electronically signed by: Lauri Tellez MD 05/08/2025 02:13 PM EDT
[2025-05-08 09:26] VITALS: BMI 21.6
[2025-05-08] MEDS: Lactated Ringers 1,000 ML 100 ML IVCONT (09:32)
[2025-05-08 09:39] VITALS: BP 118/65; PULSE 70; RESP 18; TEMP 36.7; O2SAT 96
--- NOTE | 2025-05-08 10:51 | P.CONAN_ITS ---
[facility] Active Problems Active Problems: All Active Problems (Updated 05/06/25 @ 14:05 by Christa Medrano RN) History of diverticulitis (Acute) Acute diverticulitis (Acute) Past Medical History Medical History Diverticulitis Functional capacity: independent ambulation Family History Family History Other Family history unknown Family history of problems with anesthesia: No Surgical History Surgical History Hx of colonoscopy History of ear surgery History of Problems with Anesthesia: No Social History Social History Household Members: Family Housing: House Are you a primary care transitions manager to a significant other at home: No Do you presently have visiting nurse or other home services: No Alcohol intake: former Patient Tobacco Use Status: Never used Tobacco Have you been hit, kicked, punched, or otherwise hurt by someone within the past year? If so, by whom?: No Are you DNR?: No Advance Directives: No Advance Directives Information Provided: Yes Poor oral hygiene: No Meds Allergies Allergy/AdvReac Type Severity Reaction Status Date / Time Iodinated Contrast Media (IV Allergy Severe ANAPHYLAXIS Verified 05/08/25 09:27 DYE, IODINE CONTAINING) Active Medications: Current Medications Lactated Ringer's (Lr) 1,000 mls @ 100 mls/hr IVCONT .Q10H BELÉN Last Admin: 05/08/25 09:32 Dose: 100 mls/hr Sodium Biphosphate/Sodium Phosphate (Sodium Phosphate,[place]-Dibasic 133 Ml Enema) 133 ml UT ONCE PRN PRN Reason: Poor Colonoscopy Prep Results Home Medications ?Medication ?Instructions ?Recorded ?Confirmed ?Last Taken ?Type multivitamin 1 tab PO DAILY 12/11/2304/13 Unknown History Exam Height,Weight and Vital Signs: Height 5 ft 9 in Weight 66.497 kg Last Vital Signs Temp 98.0 F 05/08/25 09:39 Pulse 70 05/08/25 09:39 Resp 18 05/08/25 09:39 BP 118/65 05/08/25 09:39 Pulse Ox 96 05/08/25 09:39 O2 Del Method Room Air 05/08/25 09:39 Airway Mallampati Class: II TM Dist: >3cm Neck ROM: Full Heart: RRR Lungs: CTA Assessment and Plan Assessment Anesthesia Assessment: Anesthesia Plan Discussed Final Anesthetic Review Family History of Problems with Anesthesia: No History of Problems with Anesthesia: No NPO: Yes ASA Class: II Final Preanesthetic Review: Meds/Allgs Chart Reviewed, Consent Obtained/Reviewed and Anes Risks/Benef Reviewed Patient Risk: Low Procedure Risk: Low Anesthetic Plan Anesthetic Plan: MAC: Disposition: Standard PACU
--- NOTE | 2025-05-08 11:24 | P.BOP_ITS ---
Brief Operative Note Date of Service: 05/08/25 Pre-op diagnosis: Screening, History of Diverticulitis Post-op diagnosis: other (Incomplete colonoscopy to the sigmoid colon, Diverticulosis) Procedure: Colonoscopy to 30-40cm Surgeon: Arsen Weaver MD Anesthesia: MAC Was an Substance Abuse Services Director used for this Procedure?: No Estimated blood loss (mL): 0 Pathology: none sent Condition: stable Disposition: PACU
[2025-05-08 11:25] VITALS: BP 105/67; PULSE 95; RESP 16; TEMP 36.1; O2SAT 95
[2025-05-08 11:40] VITALS: BP 114/75; PULSE 66; RESP 16; O2SAT 95
--- NOTE | 2025-05-08 11:52 | HO.POSTANES ---
Post Anesthesia Evaluation Post Anesthesia Evaluation Date of Service: 05/08/25 Vital Signs: Vital Signs Temp Pulse Resp BP Pulse Ox O2 Del Method 05/08/25 11:40 66 16 114/75 95 Room Air 05/08/25 11:25 97.0 F 95 16 105/67 95 Room Air 05/08/25 09:39 98.0 F 70 18 118/65 96 Room Air Anesthesia: Monitored Mental Status: Awake Pain Control: Satisfactory Nausea/Vomiting: None Hydration: Adequate Anesthesia-Related Issues: No Anes. Related Issues
[2025-05-08 11:55] VITALS: BP 138/76; PULSE 66; RESP 16; O2SAT 100
[2025-05-08 12:10] VITALS: BP 132/70; PULSE 59; RESP 16; TEMP 36.8; O2SAT 100
--- NOTE | 2025-05-08 22:01 | OP_ITS ---
DATE OF SERVICE: 05/08/2025 SURGEON: Arsen Weaver MD INDICATIONS: The patient presents for evaluation of previous history of diverticulitis, abnormal CT scan of colon, and need for colorectal cancer screening. Full consent has been obtained from him for this, including risks of bleeding and perforation. PREOPERATIVE DIAGNOSIS: POSTOPERATIVE DIAGNOSIS: PROCEDURE PERFORMED: Incomplete colonoscopy to 40 cm. ESTIMATED BLOOD LOSS: COMPLICATIONS: ANESTHESIA: Monitored anesthesia care. ASSISTANTS: SPECIMENS: PREOPERATIVE DIAGNOSES: Incomplete colonoscopy, sigmoid diverticulosis, internal hemorrhoids. DESCRIPTION OF PROCEDURE: The patient was placed in the left lateral decubitus position. The digital rectal exam revealed no abnormalities. The Olympus video pediatric colonoscope was entered into the rectum and advanced to a level of 40 cm. I was able to clearly visualize bowel lumen, but was unable to advance beyond this due to looping of the scope from intraabdominal adhesions and scarring from previous episodes of diverticulitis. We did spend time with abdominal wall pressure, but I was unable to advance beyond this level. Between 30 and 40 cm, the colonic mucosa did appear somewhat edematous with a couple of inflammatory, less than 10 mm polyps. Some diverticulosis was noted as well. I did not visualize any sign of polyps otherwise, other mucosal abnormalities, nor angiodysplasia. In the rectum, scope was retroflexed visualizing internal hemorrhoids. The rectal mucosa appeared normal. Scope was straightened and withdrawn from the patient. He tolerated the procedure well and was returned to recovery area in stable condition. IMPRESSION: 1. Incomplete colonoscopy to 40 cm. 2. Diverticulosis. 3. Internal hemorrhoids. PLAN: I shall order a CT colonography today if possible. Assuming that is negative for any proximal lesions, he would then undergo repeat colonoscopy in 10 years for further screening. He was advised to continue his high-fiber diet and probiotics. Hopefully his history of diverticulitis will remain stable, but if he continues to have intermittent episodes he would need to follow up with Dr. Arcineiga in that regard to consider surgery if need be. This has been discussed with his . MD RADHA Guillen/MARILOU / [phone] KAUSHAL
== END 2025-05-08 14:24 | disposition home or self-care (01) ==
PROVIDERS: PCP Nurse Practitioner Family; Visit Provider Internal Medicine
PROC: 0DJD8ZZ Inspection of Lower Intestinal Tract, Via Natural or Artificial Opening Endoscopic (ICD-10-PCS; CPT 45378; principal; 2025-05-08 10:20)
DX: Z12.11 Encounter for screening for malignant neoplasm of colon (principal); K51.40 Inflammatory polyps of colon without complications; K63.89 Other specified diseases of intestine; K56.2 Volvulus; K66.0 Peritoneal adhesions (postprocedural) (postinfection); K57.30 Diverticulosis of large intestine without perforation or abscess without bleeding; K64.8 Other hemorrhoids; Z87.19 Personal history of other diseases of the digestive system; Z79.899 Other long term (current) drug therapy
CPT/HCPCS: 45378; 74261; J2003; J2704

== ENCOUNTER → 2025-05-08 12:34 | Outpatient (BNV) | payer OTHER, SELFPAY | PROVIDERS: PCP Nurse Practitioner Family; Visit Provider Radiology Diagnostic Radiology | DX: K57.30 Diverticulosis of large intestine without perforation or abscess without bleeding (principal) | CPT/HCPCS: 74261 ==